=== PATIENT | female | born 1950 | race Caucasian/White ===

== ENCOUNTER 2016-07-19 08:35 | Outpatient (CLI) | payer MEDICARE, OTHER | END 2016-07-19 08:36 | disposition home or self-care (01) | DX: I10 Essential (primary) hypertension (principal); E78.5 Hyperlipidemia, unspecified; M25.50 Pain in unspecified joint ==

== ENCOUNTER 2016-08-17 08:00 | Outpatient (CLI) | payer MEDICARE, OTHER | END 2016-08-17 08:01 | disposition home or self-care (01) | LOC: LAB.R 08:00 | PROVIDERS: ATTEND Physician Assistant Medical | DX: R31.9 Hematuria, unspecified (principal) | CPT/HCPCS: 87077; 87086 ==

== ENCOUNTER 2016-09-15 08:00 | Outpatient (CLI) | payer MEDICARE, OTHER | END 2016-09-15 08:01 | disposition home or self-care (01) | LOC: LAB.R 08:00 | PROVIDERS: ATTEND Physician Assistant Medical | DX: R31.9 Hematuria, unspecified (principal) | CPT/HCPCS: 87086 ==

== ENCOUNTER 2016-12-13 10:59 | Outpatient (CLI) | payer MEDICARE, OTHER ==
[2016-12-13 19:24] LABS: ALBUMIN/GLOBULIN RATIO 1.3 (1.0-2.2); BILIRUBIN,TOTAL 0.5 mg/dL (0.2-1.0); BUN - BLOOD UREA NITROGEN 15 mg/dL (6-20); CALCIUM 9.6 mg/dL (8.5-10.3); CARBON DIOXIDE - CO2 29 mmol/L (21-32); CHLORIDE 103 mmol/L (101-111); CHOL/HDL RATIO 3.1 (<4.4); CHOLESTEROL 207 mg/dL; GFR - MDRD 55 (>89); GLUCOSE 94 mg/dL (70-100); HDL CHOLESTEROL 66 mg/dL; LDL/HDL RATIO 1.8 (<4.4); POTASSIUM 4.8 mmol/L (3.5-5.0); SODIUM 137 mmol/L (135-145); TOTAL PROTEIN 7.5 g/dL (6.7-8.2); TRIGLYCERIDES 93 mg/dL; VLDL CHOLESTEROL 19 mg/dL
== END 2016-12-13 11:00 | disposition home or self-care (01) ==
LOC: LAB.WCP 10:59
PROVIDERS: ATTEND Physician Assistant Medical
DX: E78.5 Hyperlipidemia, unspecified (principal)
CPT/HCPCS: 36415; 80053; 80061

== ENCOUNTER 2016-12-17 13:27 | Outpatient (CLI) | payer MEDICARE, OTHER ==
--- NOTE | 2016-12-17 16:02 | XRAY Report ---
THREE VIEW THORACIC SPINE: 12/17/2016 CLINICAL INDICATION: Back pain. FINDINGS: AP, lateral, and swimmers views of the thoracic spine demonstrate mild degenerative disk d isease, with minimal dextroscoliosis. There is no evidence of fracture. No paraspinal hematoma is see n. IMPRESSION: MILD DEGENERATIVE CHANGES. JOB #: [id number] EXT JOB #:[id number]
--- NOTE | 2016-12-17 16:12 | XRAY Report ---
COMPLETE CERVICAL SPINE: 12/17/2016 CLINICAL INDICATION: Neck pain. COMPARISON: CT 05/02/2015. FINDINGS: AP, lateral, odontoid, oblique views of the cervical spine demonstrate stable degenerative changes. There is no evidence of interval fracture. The prevertebral soft tissues are unremarkable . IMPRESSION: STABLE DEGENERATIVE CHANGES. NO EVIDENCE OF INTERVAL FRACTURE. JOB #: [id number] EXT JOB #:[id number]
--- NOTE | 2016-12-17 16:14 | XRAY Report ---
COMPLETE LUMBAR SPINE: 12/17/2016 CLINICAL INDICATION: Lumbar radiculopathy. FINDINGS: AP, lateral, oblique, cone-down views of the lumbar spine demonstrate degenerative changes , worst at L4-5. There is no evidence of fracture or subluxation. The bowel gas pattern appears unr emarkable. IMPRESSION: DEGENERATIVE CHANGES. NO EVIDENCE OF FRACTURE. :9 JOB #: [id number] EXT JOB #:[id number]
== END 2016-12-17 13:28 | disposition home or self-care (01) ==
LOC: DI 13:27
PROVIDERS: ATTEND Physician Assistant Medical
DX: M47.892 Other spondylosis, cervical region (principal); M51.34 Other intervertebral disc degeneration, thoracic region; M47.896 Other spondylosis, lumbar region
CPT/HCPCS: 72050; 72072; 72110

== ENCOUNTER 2018-09-13 08:00 | Outpatient (CLI) | payer MEDICARE, OTHER ==
[2018-09-13 12:02] LABS: BILIRUBIN,URINE NEGATIVE (NEGATIVE); GLUCOSE, URINE (UA) NEGATIVE (NEGATIVE); KETONES,URINE (UA) TRACE mg/dL (NEGATIVE); LEUKOCYTE ESTERASE, URINE TRACE (NEGATIVE); NITRITE,URINE NEGATIVE (NEGATIVE); OCCULT BLOOD,URINE TRACE-LYSE (NEGATIVE); PROTEIN,URINE NEGATIVE (NEGATIVE); UROBILINOGEN,URINE 0.2 (NORMAL) E.U./dL (NORMAL)
[2018-09-13 12:04] LABS: CLARITY,URINE CLOUDY (CLEAR)
[2018-09-13 12:10] LABS: RBC,URINE 0-5 /HPF (0-5)
[2018-09-13 12:11] LABS: BACTERIA,URINE Many /HPF (None Seen); CRYSTALS,URINE 3-5 Calcium Oxalate /LPF; SQUAMOUS EPITHELIAL CELL,UR RARE Squamous (<= Few)
== END 2018-09-13 23:59 | disposition home or self-care (01) ==
LOC: LAB.WCP 08:00
PROVIDERS: ATTEND Family Medicine
DX: R31.9 Hematuria, unspecified (principal)
CPT/HCPCS: 81001; 81003; 87086

== ENCOUNTER 2018-09-14 13:09 | Outpatient (CLI) | payer MEDICARE, OTHER ==
--- NOTE | 2018-09-18 08:22 | DEXA Report ---
Reason: POSTMENOPAUSAL STATUS Procedure Date: 09/14/2018 Accession Number: [id number] / [id number] Procedure: DEX - Dexa Spine and/or Hip CPT Code: FULL RESULT: EXAM: Dexa Spine and/or Hip DATE: 09/14/2018 1:38 PM CLINICAL HISTORY: POSTMENOPAUSAL STATUS TECHNIQUE: Dual energy x-ray absorptiometry (DXA) was performed on a [employer]. Regions measured are the AP Spine, femoral neck, and if needed forearm. COMPARISON: None. In accordance with the International Society for Clinical Densitometry (ISCD) guidelines, data from previous exams may be reanalyzed using current recommendations and techniques. This is done to allow a more accurate basis for comparison with the current study. FINDINGS: The data for the lumbar spine is as follows: BMD (g/cm/cm) T-SCORE Z-SCORE REGION L1 0.718 -3.4 -1.9 L2 0.759 -3.7 -2.2 L3 0.929 -2.3 -0.8 L4 1.032 -1.4 0.1 TOTAL 0.869 -2.6 -1.1 NOTE: All evaluable vertebrae are used for classification The data for the hip is as follows: BMD (g/cm/cm) T-SCORE Z-SCORE REGION Neck 0.750 -2.1 -0.5 TOTAL 0.840 -1.3 0.0 NOTE: The femoral neck or total proximal femur, whichever is lowest, is used for classification. IMPRESSION: THE WHO CLASSIFICATION BASED ON THE INTERNATIONAL REFERENCE STANDARD IS OSTEOPOROSIS. THE FRACTURE RISK IS HIGH. RECOMMENDATION: Patients with diagnosis of osteoporosis or osteopenia should have regular bone mineral density assessment. For those eligible for Medicare, routine testing is allowed once every 2 years. Testing frequency can be increased for patients who have rapidly progressing disease or for those who are receiving medical therapy to restore bone mass. COMMENT: World Health Organization (WHO) definitions for osteoporosis and osteopenia: NORMAL BMD: T-score at -1.0 or higher, fracture risk is low OSTEOPENIA BMD: T-score between -1.0 and -2.5, fracture risk is increased. OSTEOPOROSIS BMD: T-score at -2.5 or lower, fracture risk is high. National Osteoporosis Foundation recommends: 1. Obtain adequate dietary calcium (at least 1200 mg per day) and vitamin D (400-800 international units per day). 2. Participate, as appropriate, in regular weightbearing and muscle-strengthening exercise. 3. Avoid tobacco use and reduce alcohol and caffeine intake. 4. For more detailed information see the website at www.NOF.org.
== END 2018-09-14 13:10 | disposition home or self-care (01) ==
LOC: DI 13:09
PROVIDERS: ATTEND Family Medicine
DX: M81.0 Age-related osteoporosis without current pathological fracture (principal); Z78.0 Asymptomatic menopausal state
CPT/HCPCS: 77080

== ENCOUNTER 2018-10-31 10:01 | Outpatient (CLI) | payer MEDICARE, OTHER ==
[2018-10-31 10:17] LABS: BASOPHILS # (AUTO) 0.1 10^3/uL (0.0-0.1); BASOPHILS % (AUTO) 0.9 %; EOSINOPHILS # (AUTO) 0.6 10^3/uL (0.0-0.7); EOSINOPHILS % (AUTO) 8.2 %; HGB - HEMOGLOBIN 13.2 g/dL (12.0-16.0); LYMPHOCYTES # (AUTO) 2.3 10^3/uL (1.5-3.5); LYMPHOCYTES % (AUTO) 30.2 %; MEAN CORPUSCULAR HEMOGLOBIN 31.7 pg (27.0-31.0); MEAN CORPUSCULAR HGB CONC 32.7 g/dL (32.0-36.0); MEAN CORPUSCULAR VOLUME 96.9 fL (81.0-99.0); MEAN PLATELET VOLUME 9.9 fL (7.9-10.8); MONOCYTES # (AUTO) 0.6 10^3/uL (0.0-1.0); MONOCYTES % (AUTO) 7.7 %; NEUTROPHILS # (AUTO) 4.1 10^3/uL (1.5-6.6); NEUTROPHILS % (AUTO) 52.7 %; PLT - PLATELET COUNT 176 10^3/uL (130-450); RED BLOOD COUNT 4.17 10^6/uL (4.20-5.40); RED CELL DISTRIBUTION WIDTH 12.4 % (12.0-15.0); WHITE BLOOD COUNT 7.7 x10^3/uL (4.8-10.8)
== END 2018-10-31 10:02 | disposition home or self-care (01) ==
LOC: LAB 10:01
PROVIDERS: ATTEND Internal Medicine Gastroenterology
DX: I10 Essential (primary) hypertension (principal)
CPT/HCPCS: 36415; 85025; 93005

== ENCOUNTER 2018-11-07 09:22 | Day surgery (SDC) | payer MEDICARE, OTHER ==
[2018-11-07] MEDS ORDERED: LACTATED RINGERS 1,000 ML IV ONE (10:02)
[2018-11-07] MEDS ORDERED: fentaNYL 250 MCG/5 ML VIAL IVP ONE (10:53)
[2018-11-07] MEDS ORDERED: MIDAZOLAM 2 MG/2 ML VIAL IVP ONE (10:53)
[2018-11-07 11:42] VITALS: BP 123/71
== END 2018-11-07 09:23 | disposition home or self-care (01) ==
LOC: SDS 09:22
PROVIDERS: ATTEND Internal Medicine Gastroenterology
PROC: 0DBN8ZZ Excision of Sigmoid Colon, Via Natural or Artificial Opening Endoscopic (ICD-10-PCS; 2018-11-07)
PROC: 0DBH8ZZ Excision of Cecum, Via Natural or Artificial Opening Endoscopic (ICD-10-PCS; principal; 2018-11-07 10:45)
DX: Z12.11 Encounter for screening for malignant neoplasm of colon (principal); D12.5 Benign neoplasm of sigmoid colon; D12.0 Benign neoplasm of cecum; K57.30 Diverticulosis of large intestine without perforation or abscess without bleeding; I10 Essential (primary) hypertension
CPT/HCPCS: 45380; J3010; J7120

== ENCOUNTER 2019-11-16 14:22 | Outpatient (CLI) | payer MEDICARE, OTHER | END 2019-11-16 14:23 | disposition home or self-care (01) | LOC: COV 14:22 | PROVIDERS: ATTEND Family Medicine | DX: Z20.828 Contact with and (suspected) exposure to other viral communicable diseases (principal) ==

== ENCOUNTER 2020-09-04 07:22 | Day surgery (SDC) | payer MEDICARE, OTHER ==
[~2020-09-04 07:22] MED LIST: KETOROLAC 0.45% OPHTH DROPS ONE; PROPARACAINE 0.5% OPHTH DROPS 15 ML ONE
[2020-09-04] MEDS: PHENYLEPHRINE 2.5% OPHTH 2 ML DROPS ONE ×3 (07:35→07:45)
[2020-09-04] MEDS: CYCLOPENTOLATE 1% OPHTH DROPS 2 ML ONE ×3 (07:35→07:45)
[2020-09-04] MEDS ORDERED: LACTATED RINGERS 1,000 ML IV ONE (07:44)
--- NOTE | 2020-09-04 08:04 | ANESTHESIA ---
Pre-Anesthesia VS, & Labs - Diagnosis right eye senile combined cataract - Procedure cataract extraction with IOL implant right eye Vital Signs: Temp Pulse Resp BP Pulse Ox 36.4 C L 76 20 152/84 H 98 09/04/20 07:31 09/04/20 07:31 09/04/20 07:31 09/04/20 07:31 09/04/20 07:31 Height: 5 ft 7 in Weight (kg): 68 kg Body Mass Index: 23.4 BMI Classification: Healthy weight - NPO >8 hours - Is Patient ?: No Home Medications and Allergies Home Medications: Ambulatory Orders Gabapentin [Neurontin] 300 mg PO DAILY 09/03/20 [place]-3/Dha/Epa/Fish Oil [Fish Oil 1,000 mg Softgel] 1 tab PO DAILY 09/03/20 atenoloL [Atenolol] 25 mg PO DAILY 05/02/15 Carbidopa/Levodopa 25/100 [Sinemet 25 mg/100 mg] 1 tab PO TID 11/03/18 Red Yeast Rice 1 tab PO BID 11/03/18 Gabapentin [Neurontin] 300 mg PO DAILY 09/03/20 [place]-3/Dha/Epa/Fish Oil [Fish Oil 1,000 mg Softgel] 1 tab PO DAILY 09/03/20 Allergies/Adverse Reactions: Allergies Allergy/AdvReac Type Severity Reaction Status Date / Time No Known Drug Allergies Allergy Verified 09/04/20 07:42 Anes History & Medical History - Anesthetic History Anesthesia Complications: reports: No previous complications - Medical History Cardiovascular: reports: Hypertension, High cholesterol Pulmonary: reports: None Gastrointestinal: reports: None, Colon polyps Urinary: reports: None Neuro: reports: Parkinson's Musculoskeletal: reports: Osteoporosis Endocrine/Autoimmune: reports: None Skin: reports: None Smoking Status: Never smoker Psychosocial: reports: No issues indicated - Surgical History General: reports: Hiatal hernia repair, Colonoscopy Exam General: Alert, Oriented x3, Cooperative, No acute distress Dental: WNL Mouth Openin Fingerbreadth Neck Mobility: Normal Mallampati classification: II Thyromental Distance: 4-6 cm Mental/Cognitive Status: Alert/Oriented X3, Normal for patient Plan Anesthesia Type: MAC Consent for Procedure(s) Verified and Reviewed: Yes Code Status: Attempt Resuscitation ASA classification: 2-Mild systemic disease Is this case an emergency?: No
[2020-09-04] MEDS ORDERED: EPINEPHrine 1 MG/ML AMP ONE (08:13)
[2020-09-04] MEDS ORDERED: TRIAMCIN/MOXIFLOX OPHTHALMIC 0.6 ML VIAL IO ONE ×2 (08:13→08:42)
[2020-09-04] MEDS ORDERED: TIMOLOL 0.5% OPHTH DROPS ONE (08:14)
[2020-09-04] MEDS ORDERED: BSS/LIDOCAINE/EPINEPHRINE 1 ML SYRINGE ONE (08:14)
[2020-09-04] MEDS ORDERED: BRIMONIDINE 0.2% OPHTH DROPS 5 ML ONE (08:14)
[2020-09-04] MEDS ORDERED: VANCOMYCIN OPHTHALMI 8MG/0.8ML 8 MG/0.8 ML SYRINGE IO ONE ×2 (08:14→08:42)
[2020-09-04] MEDS ORDERED: MIDAZOLAM 2 MG/2 ML VIAL ONE (08:20)
[2020-09-04] MEDS ORDERED: BRIMONIDINE 0.2% OPHTH DROPS 5 ML OPTH ONE (08:41)
[2020-09-04] MEDS ORDERED: EPINEPHrine 1 MG/ML AMP IR ONE (08:41)
[2020-09-04] MEDS ORDERED: TIMOLOL 0.5% OPHTH DROPS OPTH ONE (08:41)
[2020-09-04] MEDS ORDERED: CHONDR SULF/HYALURONATE SYRINGE IO ONE (08:41)
[2020-09-04] MEDS ORDERED: PROPARACAINE 0.5% OPHTH DROPS 15 ML EACHEYE ONE (08:42)
[2020-09-04] MEDS ORDERED: BSS/LIDOCAINE/EPINEPHRINE 1 ML SYRINGE IO ONE (08:42)
[2020-09-04] MEDS ORDERED: LACTATED RINGERS 800 ML IV ONE (08:53)
--- NOTE | 2020-09-04 08:57 | OPERATIVE REPORT ---
Operative Report - Other Other Information/Narrative: Date of Surgery: 09/04/20 Preop Dx: Visually significant cataract right eye. This was the first cataract surgery. Postop Dx: Same Procedure: Phacoemulsification with posterior chamber intraocular lens implant right eye Surgeon: Dr. Toney Posadas Anesthesia: Monitored anesthesia care Complications: None Operative Indications: This is a 70-year-old F with progressive vision loss in the right eye due to 3+ nuclear sclerotic and 3+ posterior subcapsular cataract. Best corrected visual acuity was 20/40 with glare to count-fingers vision in the right eye. Indications for surgery were: - Overall decrease in vision - Difficulty driving in low light or at night - Difficulty driving at night because of headlights from other vehicles The patient was consented at length concerning the risks and benefits of cataract surgery after which the patient expressed a desire to proceed with surgery. Operative Procedure: The patient was taken into OR#3 and placed under monitored anesthesia care. A surgical time-out was conducted confirming correct patient, correct procedure, and correct surgical site. The patient was given topical anesthesia and then prepped and draped in the usual sterile fashion. The eye was entered at the 6 and 3 oclock positions. Intracameral Shugarcaine was injected into the anterior chamber followed by a dispersive viscoelastic. A co ntinuous-tear curvilinear capsulorhexis was performed. The nucleus was hydrodissected and phacoemulsified. The cortex was evacuated using automated infusion and aspiration. A cohesive viscoelastic was injected into the capsular bag and a 12.5 diopter intraocular lens was inserted into the bag. Infusion and aspiration were used to evacuate the viscoelastic materials from the eye. The wounds were hydrated and the eye inflated to physiologic pressure using balanced salt solution. Approximately 0.25ml of a mixture of triamcinolone and moxifloxacin was injected trans-sclerally into the vitreous in the inferotemporal quadrant using a 30 gauge cannula. An additional 0.55ml of a mixture of triamcinolone, moxifloxacin, and vancomycin was injected subconjunctivally in the superior quadrant for infection and inflammation prophylaxis. Wound integrity was checked with Weck-Elo sponges. The patient was taken from the operating room in good condition and given post-op instructions.
[2020-09-04 09:11] VITALS: BP 139/67
--- NOTE | 2020-09-04 09:51 | ANESTHESIA POST OP EVALUATION ---
Anesthesia Post Eval - Post Anesthesia Eval Vitals: Last Vital Signs Temp 36.4 C L 09/04/20 09:10 Pulse 70 09/04/20 09:10 Resp 16 09/04/20 09:10 BP 139/67 H 09/04/20 09:10 Pulse Ox 100 09/04/20 09:10 CV Function Including HR & BP: Stable Pain Control: Satisfactory Nausea & Vomiting: Negative Mental Status: Baseline Respiratory Status: Airway Patent Hydration Status: Satisfactory Anesthesia Complications: None
== END 2020-09-04 07:23 | disposition home or self-care (01) ==
LOC: SDS 07:22
PROVIDERS: ATTEND Ophthalmology
DX: H25.811 Combined forms of age-related cataract, right eye (principal); I10 Essential (primary) hypertension
CPT/HCPCS: 66984; A9270; J3490; J7120

== ENCOUNTER 2020-10-02 07:44 | Day surgery (SDC) | payer MEDICARE, OTHER ==
[~2020-10-02 07:44] MED LIST changes: +CYCLOPENTOLATE 1% OPHTH DROPS 2 ML ONE; +PILOCARPINE 1% OPHTH DROPS ONE
[2020-10-02] MEDS ORDERED: LACTATED RINGERS 1,000 ML IV ONE ×2 (07:51→09:09)
[2020-10-02] MEDS ORDERED: PHENYLEPHRINE 2.5% OPHTH 2 ML DROPS LEFTEYE ONE (07:52)
--- NOTE | 2020-10-02 08:01 | ANESTHESIA ---
Pre-Anesthesia VS, & Labs - Diagnosis left eye cataract - Procedure left CATIOL Vital Signs: Temp Pulse Resp BP Pulse Ox 36 C L 71 16 149/83 H 96 10/02/20 07:55 10/02/20 07:55 10/02/20 07:55 10/02/20 07:55 10/02/20 07:55 Height: 5 ft 7 in Weight (kg): 67.2 kg Body Mass Index: 23.2 BMI Classification: Healthy weight - NPO >8 hours - Is Patient ?: No - Lab Results Lab results reviewed: Yes Home Medications and Allergies atenoloL [Atenolol] 25 mg PO DAILY 05/02/15 Carbidopa/Levodopa 25/100 [Sinemet 25 mg/100 mg] 1 tab PO TID 11/03/18 Red Yeast Rice 1 tab PO BID 11/03/18 Gabapentin [Neurontin] 300 mg PO DAILY 09/03/20 [place]-3/Dha/Epa/Fish Oil [Fish Oil 1,000 mg Softgel] 1 tab PO DAILY 09/03/20 Allergies/Adverse Reactions: Allergies Allergy/AdvReac Type Severity Reaction Status Date / Time No Known Drug Allergies Allergy Verified 09/04/20 07:42 Anes History & Medical History - Anesthetic History Anesthesia Complications: reports: No previous complications Family history of Anesthesia Complications: Denies Family history of Malignant Hyperthermia: Denies - Medical History Cardiovascular: reports: Hypertension, High cholesterol Pulmonary: reports: None Gastrointestinal: reports: None, Colon polyps Urinary: reports: None Neuro: reports: Parkinson's Musculoskeletal: reports: Osteoporosis Endocrine/Autoimmune: reports: None Skin: reports: None Smoking Status: Never smoker - Surgical History General: reports: Hiatal hernia repair, Colonoscopy Eyes Ears Nose Throat (EENT): reports: Cataracts Exam General: Alert, Oriented x3, Cooperative, No acute distress Dental: WNL Mouth Openin Fingerbreadth Neck Mobility: Normal Mallampati classification: II Respiratory: Lungs clear, Normal breath sounds, No respiratory distress, No accessory muscle use Cardiovascular: Regular rate, Normal S1, Normal S2, No murmurs Plan Anesthesia Type: MAC Consent for Procedure(s) Verified and Reviewed: Yes Code Status: Attempt Resuscitation ASA classification: 2-Mild systemic disease Is this case an emergency?: No
[2020-10-02] MEDS ORDERED: MIDAZOLAM 2 MG/2 ML VIAL ONE (08:45)
[2020-10-02] MEDS ORDERED: BRIMONIDINE 0.2% OPHTH DROPS 5 ML OPTH ONE (09:02)
[2020-10-02] MEDS ORDERED: EPINEPHrine 1 MG/ML AMP IR ONE (09:02)
[2020-10-02] MEDS ORDERED: CHONDR SULF/HYALURONATE SYRINGE IO ONE (09:02)
[2020-10-02] MEDS ORDERED: BSS/LIDOCAINE/EPINEPHRINE 1 ML SYRINGE IO ONE (09:03)
[2020-10-02] MEDS ORDERED: TIMOLOL 0.5% OPHTH DROPS OPTH ONE (09:03)
[2020-10-02] MEDS ORDERED: TRIAMCIN/MOXIFLOX OPHTHALMIC 0.6 ML VIAL IO ONE ×2 (09:03→10:39)
[2020-10-02] MEDS ORDERED: VANCOMYCIN OPHTHALMI 8MG/0.8ML 8 MG/0.8 ML SYRINGE IO ONE ×2 (09:04→10:40)
[2020-10-02] MEDS ORDERED: PROPARACAINE 0.5% OPHTH DROPS 15 ML EACHEYE ONE (09:04)
[2020-10-02 09:22] VITALS: BP 137/75
--- NOTE | 2020-10-02 09:30 | ANESTHESIA POST OP EVALUATION ---
Anesthesia Post Eval - Post Anesthesia Eval Vitals: Last Vital Signs Temp 36.6 C 10/02/20 09:21 Pulse 64 10/02/20 09:21 Resp 16 10/02/20 09:21 BP 137/75 H 10/02/20 09:21 Pulse Ox 95 10/02/20 09:21 CV Function Including HR & BP: Stable Pain Control: Satisfactory Nausea & Vomiting: Negative Mental Status: Baseline Respiratory Status: Airway Patent Hydration Status: Satisfactory Anesthesia Complications: None
--- NOTE | 2020-10-02 09:41 | OPERATIVE REPORT ---
Operative Report - Other Other Information/Narrative: Date of Surgery: 10/02/20 Preop Dx: Visually significant cataract left eye. Cataract surgery was performed in the right eye on 09/04/2020. Postop Dx: Same Procedure: Phacoemulsification with posterior chamber intraocular lens implant left eye Surgeon: Dr. Toney Posadas Anesthesia: Monitored anesthesia care Complications: None Operative Indications: This is a 70-year-old F with progressive vision loss in the left eye due to 2+ nuclear sclerotic, and 1+ posterior subcapsular cataract. Best corrected visual acuity was 20/20 with glare to 20/80 vision in the left eye. Indications for surgery were: - Overall decrease in vision - Difficulty seeing words on a computer screen - Difficulty reading - Difficulty driving in low light or at night - Difficulty driving at night because of headlights from other vehicles The patient was consented at length concerning the risks and benefits of cataract surgery after which the patient expressed a desire to proceed with surgery. Operative Procedure: The patient was taken into OR#3 and placed under monitored anesthesia care. A surgical time-out was conducted confirming correct patient, correct procedure, and correct surgical site. The patient was given topical anesthesia and then prepped and draped in the usual sterile fashion. The eye was entered at the 6 and 3 oclock positions. Intracameral Shugarcaine was injected into the anterior chamber followed by a dispersive viscoelastic. A continuous-tear curvilinear capsulorhexis was performed. The nucleus was hydrodissected and phacoemulsified. The cortex was evacuated using automated infusion and aspiration. A cohesive viscoelastic was injected into the capsular bag and a 12.5 diopter intraocular lens was inserted into the bag. Infusion and aspiration were used to evacuate the viscoelastic materials from the eye. The wounds were hydrated and the eye inflated to physiologic pressure using balanced salt solution. Approximately 0.25ml of a mixture of triamcinolone and moxifloxacin was injected trans-sclerally into the vitreous in the inferotemporal quadrant using a 30 gauge cannula. An additional 0.55ml of a mixture of triamcinolone, moxifloxacin, and vancomycin was injected subconjunctivally in the superior quadrant for infection and inflammation prophylaxis. Wound integrity was checked with Weck-Elo sponges. The patient was taken from the operating room in good condition and given post-op instructions.
[2020-10-02] MEDS ORDERED: BRIMONIDINE 0.2% OPHTH DROPS 5 ML ONE (10:39)
[2020-10-02] MEDS ORDERED: TIMOLOL 0.5% OPHTH DROPS ONE (10:39)
[2020-10-02] MEDS ORDERED: BSS/LIDOCAINE/EPINEPHRINE 1 ML SYRINGE ONE (10:39)
[2020-10-02] MEDS ORDERED: EPINEPHrine 1 MG/ML AMP ONE (10:39)
== END 2020-10-02 07:45 | disposition home or self-care (01) ==
LOC: SDS 07:44
PROVIDERS: ATTEND Ophthalmology
DX: H25.812 Combined forms of age-related cataract, left eye (principal); I10 Essential (primary) hypertension; E78.00 Pure hypercholesterolemia, unspecified; G20 Parkinson's disease; M81.0 Age-related osteoporosis without current pathological fracture; Z96.1 Presence of intraocular lens
CPT/HCPCS: 66984; A9270; J3490; J7120

== ENCOUNTER 2021-07-29 09:41 | Outpatient (CLI) | payer MEDICARE, OTHER ==
--- NOTE | 2021-07-29 11:19 | DEXA Report ---
PROCEDURE: Dexa Spine and/or Hip INDICATIONS: OSTEOPOROSIS TECHNIQUE: Dual energy x-ray absorptiometry (DXA) was performed on a [employer]. Regions measur ed are the AP Spine, femoral neck, and if needed forearm. COMPARISON: 09/14/2018. FINDINGS: Lumbar Spine: Bone Mineral Density 0.975 g/cm/cm,T score -1.7, osteopenia Left Hip: Bone Mineral Density 0.836 g/cm/cm,T score -1.4, osteopenia Left Femoral Neck: Bone Mineral Density 0.765 g/cm/cm, T score -2.0, osteopenia (T score greater or equal to -1.0: NORMAL) (T score from -1.1 to -2.4: OSTEOPENIA) (T score less than or equal to -2.5 to: OSTEOPOROSIS) Impression: Osteopenia. Bone mineral density has decreased 0.5% interval since prior exam obtained 09/14/2018. Patients with diagnosis of osteoporosis or osteopenia should have regular bone mineral density assess ment. For those eligible for Medicare, routine testing is allowed once every 2 years. Testing frequ ency can be increased for patients who have rapidly progressing disease or for those who are receivin g medical therapy to restore bone mass. Reviewed by: Isamar Frederick MD, PhD on 07/29/2021 11:18 AM PDT Approved by: Isamar Frederick MD, PhD on 07/29/2021 11:18 AM PDT Station ID: [id number]
== END 2021-07-29 09:42 | disposition home or self-care (01) ==
LOC: DI 09:41
PROVIDERS: ATTEND Nurse Practitioner Family
DX: M85.89 Other specified disorders of bone density and structure, multiple sites (principal)

== ENCOUNTER 2021-11-23 09:21 | Outpatient (CLI) | payer MEDICARE, OTHER | END 2021-11-23 09:22 | disposition critical access hospital (66) | LOC: EMS 09:21 | DX: R00.2 Palpitations (principal); I48.91 Unspecified atrial fibrillation | CPT/HCPCS: A0425; A0427 ==

== ENCOUNTER 2021-11-23 09:45 | Inpatient (IN) | payer MEDICARE, OTHER ==
[2021-11-23] MEDS ORDERED: SODIUM CHLORIDE 0.9% 1,000 ML IV STA (09:51)
[2021-11-23] MEDS: diltiaZEM INJ 5 MG/ML VIAL IVP PRN ×3 (10:00→10:53)
[2021-11-23 10:01] LABS: BASOPHILS % (AUTO) 0.4 %; EOSINOPHILS # (AUTO) 0.4 10^3/uL (0.0-0.7); EOSINOPHILS % (AUTO) 5.8 %; HCT - HEMATOCRIT 37.4 % (37.0-47.0); HGB - HEMOGLOBIN 12.2 g/dL (12.0-16.0); LYMPHOCYTES # (AUTO) 1.2 10^3/uL (1.5-3.5); LYMPHOCYTES % (AUTO) 16.5 %; MEAN CORPUSCULAR HEMOGLOBIN 32.4 pg (27.0-31.0); MEAN CORPUSCULAR HGB CONC 32.6 g/dL (32.0-36.0); MEAN CORPUSCULAR VOLUME 99.2 fL (81.0-99.0); MEAN PLATELET VOLUME 10.3 fL (7.9-10.8); MONOCYTES # (AUTO) 0.5 10^3/uL (0.0-1.0); MONOCYTES % (AUTO) 7.6 %; NEUTROPHILS # (AUTO) 4.9 10^3/uL (1.5-6.6); NEUTROPHILS % (AUTO) 69.4 %; PLT - PLATELET COUNT 169 10^3/uL (130-450); RED BLOOD COUNT 3.77 10^6/uL (4.20-5.40); RED CELL DISTRIBUTION WIDTH 13.9 % (12.0-15.0); WHITE BLOOD COUNT 7.1 x10^3/uL (4.8-10.8)
--- NOTE | 2021-11-23 10:28 | XRAY Report ---
PROCEDURE: Chest 1 View X-Ray INDICATIONS: chest pain TECHNIQUE: One view of the chest was acquired. COMPARISON: None FINDINGS: Surgical changes and devices: Overlying monitoring wires. Lungs and pleura: Diffuse interstitial prominence, most dense in the perihilar regions bilaterally. Patchy alveolar opacity in the right upper and left midlung. Blunting of both costophrenic sulci. No pneumothorax. Mediastinum: Normal size heart. Indistinct central vessels. Normal aortic contour. Bones and chest wall: No suspicious bony lesions. Overlying soft tissues appear unremarkable. IMPRESSION: 1. Diffuse interstitial thickening with patchy perihilar alveolar opacities. Differential diagnosis i ncludes interstitial and pulmonary edema or pneumonia. Correlate clinically. 2. Normal size heart with indistinct central vessels. 3. Possible small bilateral pleural effusions. Reviewed by: Bindu Oro MD on 11/23/2021 10:26 AM PDT Approved by: Bindu Oro MD on 11/23/2021 10:26 AM PDT Station ID: [id number]
[2021-11-23 10:33] LABS: ALBUMIN 3.3 g/dL (3.2-5.5); ALBUMIN/GLOBULIN RATIO 1.1 (1.0-2.2); ALKALINE PHOSPHATASE 126 IU/L (42-121); ALT ALANINE AMINOTRANSFERASE < 10 IU/L (10-60); AST ASPARTATE AMINOTRANSFERASE 32 IU/L (10-42); BILIRUBIN,TOTAL 0.7 mg/dL (0.2-1.0); BUN - BLOOD UREA NITROGEN 31 mg/dL (6-20); CARBON DIOXIDE - CO2 29 mmol/L (21-32); CHLORIDE 103 mmol/L (101-111); CREATININE 1.2 mg/dL (0.4-1.0); GFR - MDRD 44 (>89); GLUCOSE 165 mg/dL (70-100); LIPASE 27 U/L (22-51); MAGNESIUM 1.9 mg/dL (1.7-2.8); POTASSIUM 4.3 mmol/L (3.5-5.0); SODIUM 141 mmol/L (135-145); TOTAL PROTEIN 6.4 g/dL (6.7-8.2)
[2021-11-23 10:39] LABS: PT - PROTHROMBIN TIME 11.7 secs (9.9-12.6)
[2021-11-23] MEDS ORDERED: diltiaZEM INJ 125 MG in DEXTROSE 5% 100 ML IV STA ×2 (11:59→14:41)
[2021-11-23] MEDS ORDERED: METOPROLOL TARTRATE 50 MG TABLET PO STA (12:21)
[2021-11-23] MEDS ORDERED: diltiaZEM 30 MG TABLET PO STA (12:21)
--- NOTE | 2021-11-23 15:01 | ED Physician Documentation ---
History of Present Illness - Stated complaint Stated Complaint: RVR AFIB - Chief complaint Chief Complaint: Cardiac - Additonal information Additional information: Patient 71-year-old female presenting to the emergency department with atrial fibrillation with rapid ventricular response. Reports she felt symptoms began 4 days ago. Today contacted her primary care doctor's office and was instructed to come to the emergency department. Endorses for history of hypertension, dyslipidemia and osteoporosis. Denies any history of coronary artery disease. Denies any chest pain or shortness of breath associated with her symptoms. Review of Systems Ten Systems: 10 systems reviewed and negative Constitutional: denies: Fever Eyes: denies: Loss of vision Ears: denies: Loss of hearing Nose: denies: Rhinorrhea / runny nose Throat: denies: Dental pain / toothache Cardiac: reports: Palpitations. denies: Chest pain / pressure Respiratory: denies: Dyspnea GI: denies: Abdominal Pain, Nausea, Vomiting : denies: Dysuria PD PAST MEDICAL HISTORY - Past Medical History Past Medical History: Yes Cardiovascular: Hypertension, High cholesterol Respiratory: None Neuro: Parkinson's Endocrine/Autoimmune: None GI: None, Colon polyps : None Psych: None Musculoskeletal: Osteoporosis Derm: None - Past Surgical History Past Surgical History: Yes General: Hiatal hernia repair, Colonoscopy HEENT: Cataracts - Present Medications Home Medications: Ambulatory Orders Medication Instructions Recorded Confirmed Carbidopa/Levodopa 25/100 [Sinemet 1 tab PO QID 11/03/18 11/23/21 25 mg/100 mg] [place]-3/Dha/Epa/Fish Oil [Fish Oil 1 cap PO DAILY 09/03/20 11/23/21 1,000 mg Softgel] Alendronate [Fosamax] 70 mg PO OAW 11/23/21 11/23/21 Apixaban [Eliquis] 5 mg PO BID #60 tablet 11/23/21 Atenolol [Tenormin] 50 mg PO DAILY 11/23/21 11/23/21 Calcium Carbonate [Calcium] 600 mg PO DAILY 11/23/21 11/23/21 Cholecalciferol (Vitamin D3) 50 mcg PO DAILY 11/23/21 11/23/21 [Vitamin D3] Rosuvastatin Calcium [Crestor] 10 mg PO QPM 11/23/21 11/23/21 - Allergies Allergies/Adverse Reactions: Allergies Allergy/AdvReac Type Severity Reaction Status Date / Time No Known Drug Allergies Allergy Verified 11/23/21 09:48 - Social History Does the pt smoke?: No Smoking Status: Never smoker Does the pt drink ETOH?: No Does the pt have substance abuse?: No - Immunizations Immunizations are current?: Yes PD ED PE NORMAL - General General: Alert and oriented X 3, No acute distress, Well developed/nourished - HEENT HEENT: Atraumatic, PERRL - Neck Neck: Supple, no meningeal sign, No bony TTP, No JVD - Cardiac Cardiac: Other (Tachycardic, irregularly irregular) - Respiratory Respiratory: No respiratory distress, Clear bilaterally - Abdomen Abdomen: Normal bowel sounds, Non tender - Female Female : Deferred - Rectal Rectal: Deferred - Back Back: No CVA TTP - Derm Derm: Normal color - Extremities Extremities: No deformity - Neuro Neuro: Alert and oriented X 3, entry level assistant manager 2-12 intact, No motor deficit, No sensory deficit Results - Vitals Vitals: Vital Signs - 24 hr 11/23/21 11/23/21 11/23/21 09:48 09:55 10:25 Temperature 36.8 C 36.8 C Heart Rate 120 H 120 H 89 Respiratory 20 18 22 Rate Blood Pressure 120/77 120/77 86/52 L O2 Saturation 100 100 94 11/23/21 11/23/21 11/23/21 10:40 11:00 11:30 Temperature Heart Rate 91 98 96 Respiratory 26 H 22 22 Rate Blood Pressure 115/88 H 114/86 H 108/82 H O2 Saturation 92 97 98 11/23/21 11/23/21 11/23/21 12:00 12:30 13:00 Temperature 36.8 C Heart Rate 112 H 126 H 126 H Respiratory 18 24 22 Rate Blood Pressure 127/86 H 135/82 H 140/90 H O2 Saturation 94 92 92 11/23/21 11/23/21 11/23/21 13:30 14:00 14:40 Temperature Heart Rate 120 H 108 H 121 H Respiratory 24 22 Rate Blood Pressure 120/90 H 133/86 H 128/86 H O2 Saturation 92 94 11/23/21 15:00 Temperature Heart Rate 115 H Respiratory 22 Rate Blood Pressure 128/100 H O2 Saturation 92 Oxygen O2 Source Room air - EKG (time done) 949 Rate: Rate (enter#) (120) Rhythm: Atrial fibrillation [place]: Normal Intervals: Prolonged QT QRS: Normal Ischemia: Non specific changes Computer interpretation: Agree with computer - Labs Labs: Laboratory Tests 11/23/21 11/23/21 11/23/21 09:50 09:50 09:50 WBC 7.1 RBC 3.77 L Hgb 12.2 Hct 37.4 MCV 99.2 H MCH 32.4 H MCHC 32.6 RDW 13.9 Plt Count 169 MPV 10.3 Neut # (Auto) 4.9 Lymph # (Auto) 1.2 L [place] # (Auto) 0.5 Eos # (Auto) 0.4 Baso # (Auto) 0.0 Absolute Nucleated RBC 0.00 Nucleated RBC % 0.0 PT INR Sodium 141 Potassium 4.3 Chloride 103 Carbon Dioxide 29 Anion Gap 9.0 BUN 31 H Creatinine 1.2 H Estimated GFR (MDRD) 44 L Glucose 165 H Calcium 9.0 Magnesium 1.9 Total Bilirubin 0.7 AST 32 ALT < 10 L Alkaline Phosphatase 126 H Total Protein 6.4 L Albumin 3.3 Globulin 3.1 Albumin/Globulin Ratio 1.1 Lipase 27 TSH 1.12 SARS-CoV-2 (PCR) 11/23/21 11/23/21 10:05 10:10 WBC RBC Hgb Hct MCV MCH MCHC RDW Plt Count MPV Neut # (Auto) Lymph # (Auto) [place] # (Auto) Eos # (Auto) Baso # (Auto) Absolute Nucleated RBC Nucleated RBC % PT 11.7 INR 1.0 Sodium Potassium Chloride Carbon Dioxide Anion Gap BUN Creatinine Estimated GFR (MDRD) Glucose Calcium Magnesium Total Bilirubin AST ALT Alkaline Phosphatase Total Protein Albumin Globulin Albumin/Globulin Ratio Lipase TSH SARS-CoV-2 (PCR) NOT DETECTED PD MEDICAL DECISION MAKING - ED course Complexity details: reviewed results, re-evaluated patient, d/w patient, d/w securities consultant ED course: Patient is 71-year-old female presenting with new onset A. fib with RVR. Tachycardic with irregularly irregular pulse on arrival to the emergency department. Patient denied chest pain or shortness of breath associated with his symptoms. EKG obtained demonstrated A. fib with RVR nonspecific ST abnormalities. Labs obtained generally within normal limits or nonactionable. Patient was given IV doses of Cardizem initially. Consulted with the hospitalist service and patient was subsequently given p.o. Cardizem and Lopressor. Monitored in the emergency department for several hours with persistent uncontrolled heart rate. Ultimately started on Cardizem drip. Case discussed with the hospitalist service who graciously agreed to hospitalize the patient for further evaluation and treatment. Departure - Departure Disposition: ED Place in Observation Clinical Impression: Atrial fibrillation with RVR Discharge Date/Time: 11/23/21 15:36
[2021-11-23] MEDS ORDERED: oxyCODONE 5 MG TABLET PO PRN (15:03)
[2021-11-23] MEDS ORDERED: ONDANSETRON ODT 4 MG TABLET TL PRN (15:03)
[2021-11-23] MEDS ORDERED: SODIUM CHLORIDE FLUSH 0.9% 10 ML SYRINGE IVP PRN (15:03)
[2021-11-23] MEDS ORDERED: ONDANSETRON 4 MG/2 ML VIAL IVP PRN (15:03)
[2021-11-23] MEDS ORDERED: DIGOXIN 500 MCG/2 ML AMP IVP STA (15:06)
--- NOTE | 2021-11-23 15:12 | HISTORY & PHYSICAL EXAMINATION ---
Chief Complaint - Chief Complaint Chief Complaint: palpitations History of Present Illness - Admitted From Admitted From:: home via EMS - [facility] History obtained from: Dr. Rodriguez Limitations: none - History of Present Illness HPI Comment/Other: 71-year-old female who has no history of cardiac disease. Her risk factors for cardiac disease include age, hyperlipidemia, and hypertension. She presents with 4 days of palpitations that were getting steadily worse. She waited over the weekend to call her primary care provider office and they sent her here to the emergency room. She was brought in by EMS. EMS gave her 16 mg of diltiazem when her heart rate is 162. They dropped it down to 150 by the time she got to the ER. They had also given her a 250 cc bolus. In the ER her blood pressure is well maintained. Creatinine is newly elevated at 1.2 with a baseline being 0.8. Magnesium, potassium was normal. EKG had no acute ST-T wave changes and because she been having symptoms of palpitations for 4 days without chest pain , nausea, jaw pain, or L arm pain, the ER provider felt that demand ischemia troponin did not really need to be verified. TSH was normal. In the ER she has received diltiazem drip after diltiazem IV push 3 doses. Metoprolol p.o. And diltiazem p.o. Her heart rate is now varying between 108-126. We are asked to place her in observation to control her heart rate. On review of systems she tells me that she has been slowing down this last year. She can really feel it. She usually goes to [facility] every year to see her family. Her long-term goal is to live in [facility] when she can no longer take care of her self. It would be so much cheaper and easier to do that there. But this year she has not gone because of worsening Parkinson's, worsening right buttock stiffness. She cannot put her finger on it but she is just really slowing down. Appetite is good. She is still eating. She does not describe her self is getting very hungry but she does eat regularly to maintain nutrition and strength. There is been no cough, wheezing, phlegm production. There is no sore throat, fever, eustachian tube dysfunction. She denies any abdominal pain unless it is tightness that radiates from the right buttock around to the right lower quadrant when she bends over. There is been no change in bowel habits. She has definitely been spending more more time sitting over the last few weeks due to Parkinson's and stiffness. She still drives a car, pays her own bills, does her own housekeeping, grocery shopping and cooking. History - Past Medical History Cardiovascular: reports: Hypertension, High cholesterol Respiratory: reports: None Neuro: reports: Parkinson's (1st noted 12/2010 w head and hand tremors. then RLE 2012, global bradykinesia by 2016. 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 CT IVP nml 2015. Saw [facility] 11/21) HEENT: reports: Other (cataracts with removal and lens implants) Psych: reports: None Musculoskeletal: reports: Osteoporosis, Chronic back pain (lumbar radiciulopathy, has had PT, chiropractor, yoga, massage), Other (pyriformis syndrome) Derm: reports: Other (seborrheic dermatitis) MRSA Hx?: No Other Past Medical History: Low vitamin D - Past Surgical History General: reports: Hiatal hernia repair, Colonoscopy (2004, 2007, 2013, 10/2018), Other (ventral hernia repair as a child) HEENT: reports: Cataracts - Family & Social History Family History Comment/Other: Father at age 58 of cancer. Mom at age 67 of heart attack. 2 sisters alive and healthy, 1 with hyperthryoid and s/p th yroidectomy. 0 children Living arrangement: At home Living Situation: With family Social History Notes: Never smoked, never had a problem with alcohol abuse. was in the [place] she met him on [facility] when she was visiting there from [place].. She was born in [place]. They and moved to [place]. But they used to have a small cabin on [address]. She is since 2011. Once he , she felt that she knew many people from [facility] because of fishing people at [facility]. So [place] came [place]. Lives in her own home, completely independent. - Substance History Use: Uses substance without health or social issues: NONE Abuse: Recurrent use of substance despite neg consequences: NONE - POLST Patient has POLST: No POLST Status: Full Code Meds/Allgy - Home Medications Home Medications: Ambulatory Orders Medication Instructions Recorded Confirmed Carbidopa/Levodopa 25/100 [Sinemet 1 tab PO TID 11/03/18 10/01/20 25 mg/100 mg] Altair-3/Dha/Epa/Fish Oil [Fish Oil 1 tab PO DAILY 09/03/20 10/01/20 1,000 mg Softgel] Alendronate [Fosamax] 70 mg PO OAW 11/23/21 11/23/21 Apixaban [Eliquis] 5 mg PO BID #60 tablet 11/23/21 Atenolol [Tenormin] 50 mg PO DAILY 11/23/21 11/23/21 Calcium Carbonate [Calcium] 600 mg PO DAILY 11/23/21 11/23/21 Cholecalciferol (Vitamin D3) 50 mcg PO DAILY 11/23/21 11/23/21 [Vitamin D3] Rosuvastatin Calcium [Crestor] 10 mg PO QPM 11/23/21 11/23/21 - Allergies Allergies/Adverse Reactions: Allergies Allergy/AdvReac Type Severity Reaction Status Date / Time No Known Drug Allergies Allergy Verified 11/23/21 09:48 Review of Systems - Constitutional Constitutional: reports: Fatigue. denies: Fever, Chills, Malaise, Weakness, Poor appetite, Night sweats, Weight gain, Weight loss - Eyes Eyes: denies: Pain, Irritation, Amaurosis, Blurred vision - Ears, Nose & Throat Ears, Nose & Throat: denies: Ear pain, Hearing loss, Hearing aids, Tinnitus, Vertigo, Sore throat, Hoarseness - Cardiovascular Cariovascular: reports: Irregular heart rate, Palpitations, Exertional dyspnea, Decr. exercise tolerance. denies: Chest pain, Edema, Lightheadedness, Syncope, Orthopnea - Respiratory Respiratory: reports: Wheezing (Right now. It is new for her. She has no history of asthma. She has been wheezing since she was in the emergency room). denies: Cough, Sputum production - Gastrointestinal Gastrointestinal: reports: Abdominal pain (Waxes and wanes. Right pelvis. Worse with bending over. Hurts more when back hurts. Colonoscopy, endometrial biopsy, CT abdomen pelvis, MRI of pelvis all done.). denies: Diarrhea, Change in bowel habits, Black stools, Bloody stools, Nausea, Vomiting, Coffee grounds emesis, Reflux/heartburn - Genitourinary Genitourinary: reports: Urgency, Hematuria - Musculoskeletal Musculoskeletal: reports: Muscle pain, Back pain, Muscle aches, Stiffness, Other (Stiffness with walking, getting worse and worse. Right buttock tightens and goes down the leg as part of her chronic back pain and radiculopathy. Used to see [facility] for neurology and now sees [facility]) - Integumentary Integumentary: denies: Rash, Pruritis, Lesions - Neurological Neurological: reports: Pre-existing deficit, Abnormal gait, Incoordination. denies: General weakness, Focal weakness, Headache - Psychiatric Psychiatric: denies: Depression, Anxiety, Suicidal - Endocrine Endocrine: denies: Polyuria, Polydypsia, Polyphagia - Hematologic/Lymphatic Hematologic/Lymphatic: denies: Anemia, Bruising, Petechiae Prior Level of Functionality: Has slowed down over the last year. Denies use of durable medical equipment. Still cooks for self, cleans for herself, drives a car but [place] Exam - Vital Signs Reviewed Vital Signs: Yes Vital Signs: Vital Signs x48h Temp Pulse Resp BP Pulse Ox 11/23/21 15:00 115 H 22 128/100 H 11/23/21 14:40 121 H 128/86 H 11/23/21 14:00 108 H 22 133/86 H 94 11/23/21 13:30 120 H 24 120/90 H 11/23/21 13:00 126 H 22 140/90 H 92 11/23/21 12:30 126 H 24 135/82 H 92 11/23/21 12:00 36.8 C 112 H 18 127/86 H 94 11/23/21 11:30 96 22 108/82 H 98 11/23/21 11:00 98 22 114/86 H 97 11/23/21 10:40 91 26 H 115/88 H 92 11/23/21 10:25 89 22 86/52 L 94 11/23/21 09:55 36.8 C 120 H 18 120/77 100 11/23/21 09:48 36.8 C 120 H 20 120/77 100 - Physical Exam General Appearance: positive: No acute distress, Alert, Other (White female who looks stated age, well-groomed, well-nourished, constantly licking her lips with a very dry tongue. Baseline tremor is moderate so that her entire body is tremulous but worse in right arm, right leg and sometimes affecting vocal cords) Eyes Bilateral: positive: PERRL, EOMI ENT: positive: Dry mucous membranes, Other (Dry tongue. Dry lips.) Neck: positive: No JVD. negative: Stiff neck Respiratory: positive: No respiratory distress, Wheezes (this is new, she has no hx of asthma). negative: Rales, Rhonchi Cardiovascular: positive: Irregularly irregular, Tachycardia. negative: G allop/S4, Friction rub Peripheral Pulses: positive: 1+ Abdomen: positive: Non-tender, No organomegaly, Nml bowel sounds, No distention Skin: positive: Warm, Dry Extremities: positive: Full ROM, No pedal edema Neurologic/Psychiatric: positive: Oriented x3, CN's nml (2-12). negative: Motor nml (Diffuse body tremors, head tremor, vocal cord tremor. Right body tremors worse than left body tremors.) Conclusion/Plan - Problem List (1) Atrial fibrillation with RVR Conclusion/Plan: She does not appear to be having an ID. As such troponins were not done. TSH is normal. She does describe a subtle decrease in mobility that is getting steadily worse over the last year. She spends more time sitting than she ever did. Nevertheless her lung exam is negative for edema, or Homans' sign. There is no redness, no heat and the skin is soft and supple. Chest x-ray is abnormal and shows some signs of interstitial changes. She does not have a history of interstitial lung disease nor she on amiodarone. Plan: Observation status D-dimer Continue Cardizem drip from the emergency room and add Cardizem p.o. 4 times daily. stop drip when rate consistently <110 Add 1 dose of dig Echocardiogram CT of chest After 1 L of normal saline with bicarbonate. She has acute kidney injury now and i want to avoid making that worse (2) Wheezing Conclusion/Plan: This is new. She has no history of smoking, obstructive lung disease. It start ed in the last day. Not associated with phlegm or cough. But associated with labored breathing and his atrial fibrillation. Chest x-ray shows diffuse changes that can be either CHF or early interstitial changes. Plan: CT of chest for interstitial changes (3) Dehydration Conclusion/Plan: She states that she has been eating and drinking normally. Today was the only day where she could states she skipped a meal. She is taken her breakfast and her pills at 6 this morning but since being in the emergency room she was finally able to get half a sandwich and some water. Nevertheless, oral mucosa is quite dry as is her tongue. She also has acute kidney injury. Plan: 1 to 2 L of fluid. She did receive 1 L in the emergency room. (4) Parkinson disease Conclusion/Plan: Her tremors are fairly moderate on exam today. She tells me is because she has not had any of her medicine since 6 AM. I will resume that as soon as possible. (5) HTN (hypertension) Conclusion/Plan: At home she takes atenolol. This is to control her blood pressure and her tremors. Right now we have given her Cardizem and I will continue with that. But I will resume atenolol as well. Qualifiers: Hypertension type: primary hypertension Qualified Code(s): I10 - Essential (primary) hypertension (6) Chronic pain of right lower extremity Conclusion/Plan: She describes his pain in the right buttock, radiating sometimes on the right back hamstring. Sometimes into the right lower quadrant/pelvis. She has had extensive radiology eval, PT, massage therapy and chiropractic manipulation without relief of pain. It is between this and the Parkinson's disease it is slowing her down this year. Plan: At this time I would recommend were just going to resume her gabapentin. However, if she really is losing functional status, she might want to consider getting home to her family in the next few months so that if she deteriorates to the point of needing care, she can already be "home" and [facility] - Lab Results Lab results reviewed: Yes Fish Bones: 11/23/21 09:50 11/23/21 09:50 - Diagnostic Imaging Results Diagnostic Imaging Results: positive: Final report reviewed Diagnostic Imaging Results Comments: Diffuse interstitial thickening with patchy perihilar alveolar infiltrates. Differential diagnosis includes interstitial pulmonary edema or pneumonia. Normal heart size. Possible small bilateral pleural effusions. - EKG Results EKG Interpreted Independently: No EKG Comparison: No prior EKG EKG Findings: EKG not scanned into EMR yet. EKG report per ER MD is that it is atrial fibrillation with no acute ST-T wave changes Core Measures - Anticipated LOS I expect patient to be DC'd or transferred within 96 hours.: Yes - DVT/VTE - Prophylaxis VTE/DVT Prophylaxis med ordered at admit?: Yes
[2021-11-23] MEDS ORDERED: diltiaZEM INJ 125 MG in DEXTROSE 5% 100 ML IV SCH (16:00)
--- NOTE | 2021-11-23 16:35 | PHARMACY PROGRESS NOTE ---
- Best Possible Medication History Admit Date and Time: 11/23/21 1503 Processed by: Pharmacy Medication History completed: Yes Patient Interview: Completed Secondary Source(s): Physician records, Insurance records As the person ultimately responsible for medication therapy, providers are able to order a medication from an existing home medication list in [facility] via the "Reconcile Routine" prior to Confirmation of that medication by community support specialist. Such practice is discouraged except when the physician, in their clinical judgment, deems that a medical need exists for a medication without regard to previous use.
[2021-11-23] MEDS: CARBIDOPA/LEVODOPA 25 MG/100 MG TABLET PO SCH ×2 (16:45→20:44)
[2021-11-23] MEDS: APIXABAN 5 MG TABLET PO SCH ×2 (16:56→20:45)
[2021-11-23] MEDS ORDERED: SODIUM CHLORIDE 0.9% IV SCH (17:00)
[2021-11-23] MEDS ORDERED: SODIUM BICARBONATE IV SCH (17:00)
[2021-11-23] MEDS: LEVALBUTEROL 1.25 MG/3 ML NEB INH PRN ×3 (17:57→21:50)
[2021-11-23] MEDS: SODIUM CHLORIDE 0.9% 1,000 ML IV SCH (18:01)
[2021-11-23] MEDS: diltiaZEM 30 MG TABLET PO SCH ×2 (18:07→20:44)
[2021-11-23] MEDS: SODIUM CHLORIDE FLUSH 0.9% 10 ML SYRINGE IVP SCH (18:07)
[2021-11-23] MEDS: ACETAMINOPHEN 325 MG TABLET PO PRN (20:53)
[2021-11-23] MEDS ORDERED: SODIUM CHLORIDE INHALATION 3 ML NEB ONE (21:53)
[2021-11-24] MEDS: SODIUM CHLORIDE FLUSH 0.9% 10 ML SYRINGE IVP SCH ×3 (00:10→17:40)
[2021-11-24] MEDS: TEMAZEPAM 15 MG CAPSULE PO PRN (00:51)
[2021-11-24] MEDS: SODIUM CHLORIDE 0.9% 1,000 ML IV SCH ×2 (04:52→09:31)
[2021-11-24 05:29] LABS: CALCIUM 8.4 mg/dL (8.5-10.3); CREATININE 1.2 mg/dL (0.4-1.0); POTASSIUM 4.5 mmol/L (3.5-5.0)
[2021-11-24 05:32] LABS: PHOSPHORUS 3.7 mg/dL (2.5-4.6)
[2021-11-24] MEDS: APIXABAN 5 MG TABLET PO SCH ×2 (09:43→21:21)
[2021-11-24] MEDS: diltiaZEM 30 MG TABLET PO SCH ×4 (09:43→21:21)
[2021-11-24] MEDS: CARBIDOPA/LEVODOPA 25 MG/100 MG TABLET PO SCH ×4 (09:44→21:21)
--- NOTE | 2021-11-24 10:14 | PROVIDER PROGRESS NOTE ---
Subjective - Subjective Subjective: She is short of breath, she has needed increased levels of supplemental oxygen since admission, she is wheezing and states she has never had wheezing. Objective - Vital Signs/Intake & Output Vital Signs: Vital Signs Temp Pulse Resp BP BP Pulse Ox O2 Flow Rate 11/24/21 10:00 92 23 118/75 97 5 11/24/21 09:43 128/80 11/24/21 09:00 94 25 H 131/114 H 96 4 11/24/21 08:18 36.3 C L 11/24/21 08:00 85 28 H 140/117 H 100 6 11/24/21 07:33 8 11/24/21 06:52 81 28 H 111/73 100 8 Intake & Output: Intake & Output 11/21/21 11/22/21 11/23/21 11/24/21 23:59 23:59 23:59 23:59 Intake Total 5991.755 1301.083 Output Total 100 Balance 5006.403 5165.083 - Objective General Appearance: positive: Mild distress (wheezing and orthopneic) Eyes Bilateral: positive: Normal inspection ENT: positive: ENT inspection nml, No signs of dehydration Neck: positive: Nml inspection, Thyroid nml, No JVD Respiratory: positive: Wheezes Cardiovascular: positive: Regular rate & rhythm, No murmur (heart sounds barely audible due to diffuse wheezing) Abdomen: positive: Non-tender, Nml bowel sounds, No distention Skin: positive: No rash, Warm, Dry Extremities: positive: Non-tender, No pedal edema Neurologic/Psychiatric: positive: Oriented x3 - Lab Results Fish Bones: 11/23/21 09:50 11/24/21 05:14 Other Labs: Lab Results x24hrs 11/24/21 11/24/21 11/24/21 Range/Units 05:14 05:14 05:14 PT (9.9-12.6) secs INR (0.8-1.2) D-Dimer (200.0-255.0) ng/mL Sodium (135-145) mmol/L Potassium (3.5-5.0) mmol/L Chloride (101-111) mmol/L Carbon Dioxide (21-32) mmol/L Anion Gap (6-13) BUN (6-20) mg/dL Creatinine (0.4-1.0) mg/dL Estimated GFR (MDRD) (>89) Glucose (70-100) mg/dL Calcium (8.5-10.3) mg/dL Phosphorus 3.7 (2.5-4.6) mg/dL Magnesium 2.0 (1.7-2.8) mg/dL Total Bilirubin (0.2-1.0) mg/dL AST (10-42) IU/L ALT (10-60) IU/L Alkaline Phosphatase (42-121) IU/L Troponin I High Sens 16.5 H* (2.3-14.8) ng/L B-Natriuretic Peptide 608 H (5-100) pg/mL Total Protein (6.7-8.2) g/dL Albumin (3.2-5.5) g/dL Globulin (2.1-4.2) g/dL Albumin/Globulin Ratio (1.0-2.2) Lipase (22-51) U/L TSH (0.34-5.60) uIU/mL Nasal Screen MRSA (PCR) (NEGATIVE) SARS-CoV-2 (PCR) 11/24/21 11/23/21 11/23/21 Range/Units 05:14 15:49 15:15 PT (9.9-12.6) secs INR (0.8-1.2) D-Dimer > 1050.0 H (200.0-255.0) ng/mL Sodium 140 (135-145) mmol/L Potassium 4.5 (3.5-5.0) mmol/L Chloride 105 (101-111) mmol/L Carbon Dioxide 28 (21-32) mmol/L Anion Gap 7.0 (6-13) BUN 31 H (6-20) mg/dL Creatinine 1.2 H (0.4-1.0) mg/dL Estimated GFR (MDRD) 44 L (>89) Glucose 113 H (70-100) mg/dL Calcium 8.4 L (8.5-10.3) mg/dL Phosphorus (2.5-4.6) mg/dL Magnesium (1.7-2.8) mg/dL Total Bilirubin (0.2-1.0) mg/dL AST (10-42) IU/L ALT (10-60) IU/L Alkaline Phosphatase (42-121) IU/L Troponin I High Sens (2.3-14.8) ng/L B-Natriuretic Peptide (5-100) pg/mL Total Protein (6.7-8.2) g/dL Albumin (3.2-5.5) g/dL Globulin (2.1-4.2) g/dL Albumin/Globulin Ratio (1.0-2.2) Lipase (22-51) U/L TSH (0.34-5.60) uIU/mL Nasal Screen MRSA (PCR) NEGATIVE (NEGATIVE) SARS-CoV-2 (PCR) 11/23/21 11/23/21 11/23/21 Range/Units 10:10 10:05 09:50 PT 11.7 (9.9-12.6) secs INR 1.0 (0.8-1.2) D-Dimer (200.0-255.0) ng/mL Sodium (135-145) mmol/L Potassium (3.5-5.0) mmol/L Chloride (101-111) mmol/L Carbon Dioxide (21-32) mmol/L Anion Gap (6-13) BUN (6-20) mg/dL Creatinine (0.4-1.0) mg/dL Estimated GFR (MDRD) (>89) Glucose (70-100) mg/dL Calcium (8.5-10.3) mg/dL Phosphorus (2.5-4.6) mg/dL Magnesium (1.7-2.8) mg/dL Total Bilirubin (0.2-1.0) mg/dL AST (10-42) IU/L ALT (10-60) IU/L Alkaline Phosphatase (42-121) IU/L Troponin I High Sens (2.3-14.8) ng/L B-Natriuretic Peptide (5-100) pg/mL Total Protein (6.7-8.2) g/dL Albumin (3.2-5.5) g/dL Globulin (2.1-4.2) g/dL Albumin/Globulin Ratio (1.0-2.2) Lipase (22-51) U/L TSH 1.12 (0.34-5.60) uIU/mL Nasal Screen MRSA (PCR) (NEGATIVE) SARS-CoV-2 (PCR) NOT DETECTED 11/23/21 Range/Units 09:50 PT (9.9-12.6) secs INR (0.8-1.2) D-Dimer (200.0-255.0) ng/mL Sodium 141 (135-145) mmol/L Potassium 4.3 (3.5-5.0) mmol/L Chloride 103 (101-111) mmol/L Carbon Dioxide 29 (21-32) mmol/L Anion Gap 9.0 (6-13) BUN 31 H (6-20) mg/dL Creatinine 1.2 H (0.4-1.0) mg/dL Estimated GFR (MDRD) 44 L (>89) Glucose 165 H (70-100) mg/dL Calcium 9.0 (8.5-10.3) mg/dL Phosphorus (2.5-4.6) mg/dL Magnesium 1.9 (1.7-2.8) mg/dL Total Bilirubin 0.7 (0.2-1.0) mg/dL AST 32 (10-42) IU/L ALT < 10 L (10-60) IU/L Alkaline Phosphatase 126 H (42-121) IU/L Troponin I High Sens (2.3-14.8) ng/L B-Natriuretic Peptide (5-100) pg/mL Total Protein 6.4 L (6.7-8.2) g/dL Albumin 3.3 (3.2-5.5) g/dL Globulin 3.1 (2.1-4.2) g/dL Albumin/Globulin Ratio 1.1 (1.0-2.2) Lipase 27 (22-51) U/L TSH (0.34-5.60) uIU/mL Nasal Screen MRSA (PCR) (NEGATIVE) SARS-CoV-2 (PCR) Assessment/Plan - Problem List (1) Acute respiratory failure with hypoxia Impression: Wheezing was audible on the H&P of the admitting Hospitalist. Her admitting chest x-ray showed interstitial changes that would be consistent with CHF versus atypical pneumonia. She has needed increased supplemental O2 overnight, since being hospitalized, has tachypnea at rest, is orthopneic and has audible wheezing everywhere. CT scan chest was done today and is consistent with pulmonary edema and now her pleural effusion is growing on one side. The patient will be admitted to Inpatient status from Observation status because of worsening hypoxia. Will treat the underlying pulmonary edema. We will check troponins, BNP and follow her BNP daily Await Echo result Will give supplemental oxygen, tapering down to room air as tolerated, keeping sats >90-92% (In a patient who has no underlying COPD or history of asthma). (2) Pleural effusion Conclusion/Plan: The Echo results and CT chest both confirm she has a significant pleural effusion on the left side. This is most likely from CHF, unlikely to be from malignancy with no other findings on chest CT, unlikely to be from infection given no other infiltrate or evidence of tuberculosis, not Hypothyroid, and probably also not from connective tissue disease without any history of this. She does not have a history of interstitial lung disease nor was she on amiodarone. Will begin Lasix IV. IV fluids going at 100 cc an hour have been decreased to TKO, and will now be stopped. (3) Atrial fibrillation with RVR Conclusion/Plan: She converted to normal sinus rhythm late last night, thus the Cardizem drip is off and switching to po Cardizem has started. Also, her home B-kendrick is continuing. TSH is normal. No PE was reported on CT and she had a neg Homans sign. She had no troponins done, for unclear reasons, and troponin will be ordered today to R/O ACS as cause of new onset afib. She does not have a history of lung disease. The Echo was done today and shows that she has moderate (or more significant) mitral stenosis and mitral regurgitation and a very large left atrium. This is likely the cause of her Afib. Will continue the Eliquis that was started. (4) JERRY Conclusion/Plan: This was felt to be from dehydration, given her exam yesterday and give her her newly elevated BUN/creatinine. She received 1 L fluid in the ED and another liter after admission. The creatinine is not changing today. This may be due to the lower blood pressure causing poor perfusion to the kidneys, or may be from Cardio-Renal syndrome and renal venous volume overload. Will continue to avoid nephrotoxins. We will start IV Lasix today to manage #1 and #2 above. Follow BMP daily (5) Parkinson disease Conclusion/Plan: Her tremors were noted on admission exam because she had not had any of her medicines . We have now resumed her home Parkinsons meds. (6) Hx HTN (hypertension) Conclusion/Plan: At home she took atenolol to control her blood pressure and her tremors. Blood pressure has been soft today, since being put on Cardizem and from dehydration. (7) Chronic pain of right lower extremity Conclusion/Plan: She describes pain in the right buttock, radiating sometimes on the right back hamstring and sometimes into the right lower quadrant/pelvis. She has had exten sive radiology eval, PT, massage therapy and chiropractic manipulation without relief of pain. Between this and the Parkinson's disease, it is slowing her down. We have resumed her gabapentin. She is planning on moving back home to her family in [facility] in the next few months so that if she deteriorates to needing more care, she can already be "home" in [facility], she stated. (8) Dehydration Conclusion/Plan: Resolved with 1 day of iv fluids.
--- NOTE | 2021-11-24 10:59 | CT Report ---
PROCEDURE: CHEST W INDICATIONS: new intersitial changes w new atrial fib CONTRAST: IV CONTRAST: Optiray 320 ml: 100 PO CONTRAST: *NO PO CONTRAST TECHNIQUE: After the administration of intravenous contrast, 1 mm axial images were acquired from the pulmonary apices through the posterior costophrenic angles. Axial 5 mm soft tissue kernel reconstructions were performed as well as 8 mm axial MIP and coronal and sagittal 5 mm reformations. For radiation dose reduction, the following was used: automated exposure control, adjustment of mA and/or kV according to patient size. COMPARISON: 11/23/2021 chest radiograph FINDINGS: Image quality: Motion degraded Lungs and pleura: Perihilar groundglass opacities with superimposed septal thickening. Superimposed a telectasis.) Left moderate pleural effusions. Mediastinum: Prominent mediastinal hilar lymph nodes are borderline enlarged by size criteria, possib ly reactive, indeterminate. Cardiomegaly and biatrial enlargement. No thoracic aortic aneurysm. No ce ntral pulmonary embolism. Bones and chest wall: Small thyroid nodules do not require dedicated follow-up per current guidelines . No hematoma. No axillary adenopathy. No acute or suspicious osseous abnormality. Abdomen: Abdominal findings are separately dictated. IMPRESSION: Pulmonary edema and bilateral pleural effusions. Perihilar groundglass opacities likely representing advanced pulmonary edema, with differential including infectious or inflammatory etiologies. Correlat e with clinical presentation. Biatrial enlargement. Other findings as above. Abdominal findings are s eparately dictated. Reviewed by: Celestine Good MD on 11/24/2021 10:58 AM PDT Approved by: Celestine Good MD on 11/24/2021 10:58 AM PDT Station ID: [id number]
--- NOTE | 2021-11-24 11:07 | CT Report ---
PROCEDURE: ABDOMEN W INDICATIONS: Concern for Kidney Lac CONTRAST: IV CONTRAST: Optiray 320 ml: 100 PO CONTRAST: *NO PO CONTRAST TECHNIQUE: After the administration of oral and intravenous contrast, 5 mm thick sections acquired from the diap hragms to the iliac crests. 5 mm thick coronal and sagittal reformats were acquired. For radiation dose reduction, the following was used: automated exposure control, adjustment of mA and/or kV accor ding to patient size. COMPARISON: 10/13/2015 FINDINGS: Image quality: Motion degraded Lung bases: Chest findings are separately dictated. Solid organs: Liver is unremarkable. Gallbladder is collapsed. No biliary ductal dilation. Pancreas i s within normal limits. Spleen is unremarkable. Stable small left adrenal nodule/thickening since 201 6. Subcentimeter lesions are too small to characterize in the kidneys. Motion degradation significantly limits evaluation for focal renal laceration, however, within this limitation, there is no perinephri c hematoma or contusion. Mild perinephric fat stranding is favored to be chronic/senescent in etiolog y. The renal veins are patent. There is stenosis at the renal artery ostia, with distal normal opacif ication. Peritoneum and bowel: No bowel obstruction. No pathologic ascites. No large hematoma. Nodes and vessels: Atherosclerotic disease without abdominal aortic aneurysm. No pathologic adenopathy by size criteria. Bones: No suspicious bony lesions. No vertebral body compression fractures. Spondylosis. Miscellaneous: No ventral hernias. IMPRESSION: Significant motion degradation. No secondary findings of traumatic injury in the abdomen. If there is high clinical concern, repeat CT could be obtained. Other stable/incidental findings above. Chest fi ndings are separately dictated. Reviewed by: Celestine Good MD on 11/24/2021 11:06 AM PDT Approved by: Celestine Good MD on 11/24/2021 11:06 AM PDT Station ID: [id number]
[2021-11-24] MEDS ORDERED: FUROSEMIDE 40 MG/4 ML VIAL IVP STA (11:15)
[2021-11-24] MEDS: LEVALBUTEROL 1.25 MG/3 ML NEB INH PRN (14:49)
[2021-11-24] MEDS: FUROSEMIDE 40 MG/4 ML VIAL IVP SCH (17:41)
[2021-11-24] MEDS ORDERED: AMIODARONE 150 MG/100 ML 100 ML IV ONE (22:02)
[2021-11-24] MEDS ORDERED: AMIODARONE 360 MG/200 ML 200 ML IV ONE (22:04)
[2021-11-24] MEDS: ACETAMINOPHEN 325 MG TABLET PO PRN (22:14)
[2021-11-25] MEDS: TEMAZEPAM 15 MG CAPSULE PO PRN ×2 (00:15→23:56)
[2021-11-25] MEDS: SODIUM CHLORIDE FLUSH 0.9% 10 ML SYRINGE IVP SCH ×4 (00:32→18:38)
[2021-11-25] MEDS: AMIODARONE 360 MG/200 ML 200 ML IV SCH ×2 (04:38→16:19)
[2021-11-25] MEDS: ACETAMINOPHEN 325 MG TABLET PO PRN (04:48)
[2021-11-25] MEDS: FUROSEMIDE 40 MG/4 ML VIAL IVP SCH ×2 (06:45→14:30)
[2021-11-25 07:48] LABS: BASOPHILS # (AUTO) 0.1 10^3/uL (0.0-0.1); BASOPHILS % (AUTO) 0.5 %; EOSINOPHILS # (AUTO) 0.3 10^3/uL (0.0-0.7); EOSINOPHILS % (AUTO) 2.9 %; HCT - HEMATOCRIT 37.1 % (37.0-47.0); HGB - HEMOGLOBIN 12.2 g/dL (12.0-16.0); LYMPHOCYTES # (AUTO) 1.5 10^3/uL (1.5-3.5); MEAN CORPUSCULAR HEMOGLOBIN 31.9 pg (27.0-31.0); MEAN CORPUSCULAR HGB CONC 32.9 g/dL (32.0-36.0); MEAN CORPUSCULAR VOLUME 97.1 fL (81.0-99.0); MEAN PLATELET VOLUME 9.3 fL (7.9-10.8); MONOCYTES # (AUTO) 0.8 10^3/uL (0.0-1.0); MONOCYTES % (AUTO) 8.5 %; NEUTROPHILS # (AUTO) 6.8 10^3/uL (1.5-6.6); PLT - PLATELET COUNT 210 10^3/uL (130-450); RED BLOOD COUNT 3.82 10^6/uL (4.20-5.40); WHITE BLOOD COUNT 9.4 x10^3/uL (4.8-10.8)
[2021-11-25 08:00] LABS: CALCIUM 8.7 mg/dL (8.5-10.3); CREATININE 1.1 mg/dL (0.4-1.0); POTASSIUM 3.7 mmol/L (3.5-5.0)
[2021-11-25] MEDS ORDERED: diltiaZEM 30 MG TABLET PO SCH (08:10)
[2021-11-25] MEDS ORDERED: POTASSIUM CHLORIDE 20 MEQ TABLET PO ONE ×2 (08:24→15:12)
--- NOTE | 2021-11-25 08:47 | PROVIDER PROGRESS NOTE ---
Assessment/Plan - Problem List (1) Acute respiratory failure with hypoxia Assessment/Plan: Wheezing was audible on the H&P of the admitting Hospitalist. Her admitting chest x-ray showed interstitial changes that would be consistent with CHF versus atypical pneumonia. CT scan chest was done today and is consistent with pulmonary edema and now her pleural effusion is growing on one side. She has needed increased supplemental O2 overnight, since being hospitalized, has tachypnea at rest, is orthopneic and has audible wheezing everywhere. The patient will be admitted to Inpatient status from Observation status because of worsening hypoxia. Will treat the underlying pulmonary edema. We will check troponins, BNP and follow her BNP daily Await Echo result Will give supplemental oxygen, tapering down to room air as tolerated, keeping sats >90-92% (In a patient who has no underlying COPD or history of asthma). (2) Pleural effusion Conclusion/Plan: The Echo results and CT chest both confirm she has a significant pleural effusion on the left side. This is most likely from CHF, unlikely to be from malignancy with no other findings on chest CT, unlikely to be from infection given no other infiltrate or evidence of tuberculosis, not Hypothyroid, and probably also not from connective tissue disease without any history of this. She does not have a history of interstitial lung disease nor was she on amiodarone. Will begin Lasix IV. IV fluids going at 100 cc an hour have been decreased to TKO, and will now be stopped. (3) Atrial fibrillation with RVR Conclusion/Plan: She converted to normal sinus rhythm late last night, thus the Cardizem drip is off and switching to po Cardizem has started. Also, her home B-kendrick is continuing. TSH is normal. No PE was reported on CT and she had a neg Homans sign. She had no troponins done, for unclear reasons, and troponin will be ordered today to R/O ACS as cause of new onset afib. She does not have a history of lung disease. The Echo was done today and shows that she has moderate (or more significant) and a very large left atrium. This is likely the cause of her Afib. Will continue the Eliquis that was started. mitral stenosis and mitral regurgitation (4) JERRY Conclusion/Plan: This was felt to be from dehydration, given her exam yesterday and give her her newly elevated BUN/creatinine. She received 1 L fluid in the ED and another liter after admission. The creatinine is not changing today. This may be due to the lower blood pressure causing poor perfusion to the kidneys, or may be from Cardio-Renal syndrome and renal venous volume overload. Will continue to avoid nephrotoxins. We will start IV Lasix today to manage #1 and #2 above. Follow BMP daily (5) Parkinson disease Conclusion/Plan: Her tremors were noted on admission exam because she had not had any of her medicines . We have now resumed her home Parkinsons meds. (6) Hx HTN (hypertension) Conclusion/Plan: At home she took atenolol to control her blood pressure and her tremors. Blood pressure has been soft today, since being put on Cardizem and from dehydration. (7) Chronic pain of right lower extremity Conclusion/Plan: She describes pain in the right buttock, radiating sometimes on the right back hamstring and sometimes into the right lower quadrant/pelvis. She has had extensive radiology eval, PT, massage therapy and chiropractic manipulation without relief of pain. Between this and the Parkinson's disease, it is slowing her down. We have resumed her gabapentin. She is planning on moving back home to her family in [facility] in the next few months so that if she deteriorates to needing more care, she can already be "home" in [facility], she stated. (8) Dehydration Conclusion/Plan: Resolved with 1 day of iv fluids. - Current Meds Current Meds: Current Medications Generic Name Dose Route Start Last Admin Trade Name Freq PRN Reason Stop Dose Admin Acetaminophen 650 mg 11/23/21 15:03 11/25/21 04:48 Acetaminophen 325 Mg Tablet PO 650 mg Q4HR PRN Administration Pain 1 to 4, or Fever Apixaban 5 mg 11/23/21 15:05 11/24/21 21:21 Apixaban 5 Mg Tablet PO 5 mg BID POLLY Administration Carbidopa/Levodopa 1 tab 11/23/21 17:00 11/24/21 21:21 Carbidopa/Levodopa 25 Mg/100 Mg Tablet PO 1 tab QID POLLY Administration Furosemide 40 mg 11/24/21 18:00 11/25/21 06:45 Furosemide 40 Mg/4 Ml Vial IVP 40 mg BIDDIURETIC POLLY Administration Sodium Chloride 1,000 mls @ 30 mls/hr 11/24/21 09:24 11/24/21 09:31 Normal Saline 0.9% IV 30 mls/hr .[id number] POLLY Administration TKO Amiodarone HCl/Dextrose 200 mls @ 16.667 mls/hr 11/25/21 04:00 11/25/21 04:38 Nexterone 360 Mg/200 Ml IV 0.5 mg/min .Q12H POLLY 16.667 mls/hr Administration 0.5 MG/MIN Levalbuterol HCl 1.25 mg 11/23/21 16:57 11/24/21 14:49 Levalbuterol 1.25 Mg/3 Ml Neb INH 1.25 mg Q4H PRN Administration Shortness of Air/Wheezing Oxycodone HCl 5 mg 11/23/21 15:03 11/25/21 04:48 Oxycodone 5 Mg Tablet PO 5 mg Q4HR PRN Administration Pain 5 to 7 Sodium Chloride 10 ml 11/23/21 17:00 11/25/21 00:32 Sodium Chloride Flush 0.9% 10 Ml Syringe IVP Not Given 0100,0900,1700 POLLY Temazepam 15 mg 11/24/21 00:43 11/25/21 00:15 Temazepam 15 Mg Capsule PO 15 mg QPM PRN Administration Insomnia - Lab Result Fish Bone Diagrams: 11/25/21 07:43 11/25/21 07:43 - Additional Planning My Orders: My Active Orders 11/24/21 09:24 Sodium Chloride 0.9% [Normal Saline 0.9%] 1,000 ml IV TKO 11/24/21 11:16 Telemetry- [RC] Q4HR 11/24/21 11:18 Miscellaenous Nursing Order [RC] QSHIFT 11/24/21 18:00 FUROSEMIDE INJ 40mg VIAL [LASIX INJ 40 mg VIAL] 40 mg IVP BIDDIURETIC 11/25/21 07:40 MAGNESIUM [CHEM] Routine PHOSPHORUS [CHEM] Routine 11/25/21 09:00 Metoprolol Tartrate [Lopressor] 25 mg PO QID 11/26/21 05:00 BMP - BASIC METABOLIC PANEL [CHEM] DAILYLAB BNP - B-NATRIURETIC PEPTIDE [IAI] DAILYLAB CBC - COMP BLD CT W/AUTO DIFF [HEME] DAILYLAB 11/27/21 05:00 BMP - BASIC METABOLIC PANEL [CHEM] DAILYLAB CBC - COMP BLD CT W/AUTO DIFF [HEME] DAILYLAB 11/28/21 05:00 BMP - BASIC METABOLIC PANEL [CHEM] DAILYLAB CBC - COMP BLD CT W/AUTO DIFF [HEME] DAILYLAB Objective Vital Signs: Vital Signs - 24 hr 11/24/21 11/24/21 11/24/21 09:00 09:43 10:00 Temperature Heart Rate Heart Rate [ 94 92 Monitoring electrodes] Respiratory 25 H 23 Rate Blood Pressure 128/80 Blood Pressure 131/114 H 118/75 [Left] O2 Saturation 96 97 If not protocol 4 5 : Oxygen Flow, liters/minute 11/24/21 11/24/21 11/24/21 11:00 12:00 12:22 Temperature 36.8 C Heart Rate Heart Rate [ 92 95 Monitoring electrodes] Respiratory 35 H 21 Rate Blood Pressure Blood Pressure 116/89 H 128/111 H [Left] O2 Saturation 94 93 If not protocol 5 5 : Oxygen Flow, liters/minute 11/24/21 11/24/21 11/24/21 13:00 13:01 14:00 Temperature Heart Rate Heart Rate [ 93 93 Monitoring electrodes] Respiratory 21 26 H Rate Blood Pressure 101/54 L Blood Pressure 101/54 L 115/95 H [Left] O2 Saturation 94 97 If not protocol 5 5 : Oxygen Flow, liters/minute 11/24/21 11/24/21 11/24/21 14:50 15:00 16:00 Temperature 37.1 C Heart Rate 97 Heart Rate [ 99 102 H Monitoring electrodes] Respiratory 11 L 28 H 21 Rate Blood Pressure Blood Pressure 104/79 106/83 H [Left] O2 Saturation 95 97 If not protocol 6 5 5 : Oxygen Flow, liters/minute 11/24/21 11/24/21 11/24/21 17:00 17:40 18:00 Temperature Heart Rate Heart Rate [ 104 H 106 H Monitoring electrodes] Respiratory 17 24 Rate Blood Pressure 122/64 Blood Pressure 122/64 132/87 H [Left] O2 Saturation 94 94 If not protocol 40 40 : Oxygen Flow, liters/minute 11/24/21 11/24/21 11/24/21 19:00 20:00 21:00 Temperature 36.9 C Heart Rate Heart Rate [ 111 H 113 H 104 H Monitoring electrodes] Respiratory 30 H 28 H 19 Rate Blood Pressure Blood Pressure 120/67 135/75 H 117/77 [Left] O2 Saturation 94 92 95 If not protocol 40 40 40 : Oxygen Flow, liters/minute 11/24/21 11/24/21 11/24/21 21:21 21:39 22:00 Temperature Heart Rate Heart Rate [ 144 H 137 H Monitoring electrodes] Respiratory 26 H 30 H Rate Blood Pressure 117/77 Blood Pressure 133/84 H 126/81 H [Left] O2 Saturation 97 95 If not protocol 40 40 : Oxygen Flow, liters/minute 11/24/21 11/25/21 11/25/21 23:00 00:00 01:00 Temperature 37.0 C Heart Rate Heart Rate [ 120 H 127 H 123 H Monitoring electrodes] Respiratory 28 H 24 24 Rate Blood Pressure Blood Pressure 108/69 103/59 L 107/80 [Left] O2 Saturation 94 96 97 If not protocol 40 40 40 : Oxygen Flow, liters/minute 11/25/21 11/25/21 11/25/21 02:00 03:00 04:00 Temperature Heart Rate Heart Rate [ 105 H 105 H 111 H Monitoring electrodes] Respiratory 39 H 18 16 Rate Blood Pressure Blood Pressure 107/83 H 99/69 107/79 [Left] O2 Saturation 93 96 96 If not protocol 40 40 40 : Oxygen Flow, liters/minute 11/25/21 11/25/21 11/25/21 05:00 06:00 06:55 Temperature Heart Rate Heart Rate [ 112 H 122 H 118 H Monitoring electrodes] Respiratory 22 18 18 Rate Blood Pressure Blood Pressure 120/87 H 120/56 L 138/94 H [Left] O2 Saturation 94 94 96 If not protocol 40 40 40 : Oxygen Flow, liters/minute 11/25/21 08:00 Temperature 37.1 C Heart Rate Heart Rate [ 128 H Monitoring electrodes] Respiratory 23 Rate Blood Pressure Blood Pressure 128/75 [Left] O2 Saturation 95 If not protocol 40 : Oxygen Flow, liters/minute Oxygen O2 Source [facility] I&O (Last 24 Hrs): Intake and Output Totals x24h 11/23/21 11/24/21 11/25/21 23:59 23:59 23:59 Intake Total 9057.588 8734.083 300 Output Total 100 2615 1150 Balance 3968.371 7129.083 -850 - Results Results: Laboratory Results WBC 9.4 x10^3/uL (4.8-10.8) 11/25/21 07:43 RBC 3.82 10^6/uL (4.20-5.40) L 11/25/21 07:43 Hgb 12.2 g/dL (12.0-16.0) 11/25/21 07:43 Hct 37.1 % (37.0-47.0) 11/25/21 07:43 MCV 97.1 fL (81.0-99.0) 11/25/21 07:43 MCH 31.9 pg (27.0-31.0) H 11/25/21 07:43 MCHC 32.9 g/dL (32.0-36.0) 11/25/21 07:43 RDW 14.0 % (12.0-15.0) 11/25/21 07:43 Plt Count 210 10^3/uL (130-450) 11/25/21 07:43 MPV 9.3 fL (7.9-10.8) 11/25/21 07:43 Neut # (Auto) 6.8 10^3/uL (1.5-6.6) H 11/25/21 07:43 Lymph # (Auto) 1.5 10^3/uL (1.5-3.5) 11/25/21 07:43 [place] # (Auto) 0.8 10^3/uL (0.0-1.0) 11/25/21 07:43 Eos # (Auto) 0.3 10^3/uL (0.0-0.7) 11/25/21 07:43 Baso # (Auto) 0.1 10^3/uL (0.0-0.1) 11/25/21 07:43 Absolute Nucleated RBC 0.00 x10^3/uL 11/25/21 07:43 Nucleated RBC % 0.0 /100WBC 11/25/21 07:43 PT 11.7 secs (9.9-12.6) 11/23/21 10:05 INR 1.0 (0.8-1.2) 11/23/21 10:05 D-Dimer > 1050.0 ng/mL (200.0-255.0) H 11/23/21 15:15 Sodium 142 mmol/L (135-145) 11/25/21 07:43 Potassium 3.7 mmol/L (3.5-5.0) 11/25/21 07:43 Chloride 102 mmol/L (101-111) 11/25/21 07:43 Carbon Dioxide 30 mmol/L (21-32) 11/25/21 07:43 Anion Gap 10.0 (6-13) 11/25/21 07:43 BUN 23 mg/dL (6-20) H 11/25/21 07:43 Creatinine 1.1 mg/dL (0.4-1.0) H 11/25/21 07:43 Estimated GFR (MDRD) 49 (>89) L 11/25/21 07:43 Glucose 118 mg/dL (70-100) H 11/25/21 07:43 Calcium 8.7 mg/dL (8.5-10.3) 11/25/21 07:43 Phosphorus 3.7 mg/dL (2.5-4.6) 11/24/21 05:14 Magnesium 2.0 mg/dL (1.7-2.8) 11/24/21 05:14 Total Bilirubin 0.7 mg/dL (0.2-1.0) 11/23/21 09:50 AST 32 IU/L (10-42) 11/23/21 09:50 ALT < 10 IU/L (10-60) L 11/23/21 09:50 Alkaline Phosphatase 126 IU/L (42-121) H 11/23/21 09:50 Troponin I High Sens 16.5 ng/L (2.3-14.8) H* 11/24/21 05:14 B-Natriuretic Peptide 612 pg/mL (5-100) H 11/25/21 07:43 Total Protein 6.4 g/dL (6.7-8.2) L 11/23/21 09:50 Albumin 3.3 g/dL (3.2-5.5) 11/23/21 09:50 Globulin 3.1 g/dL (2.1-4.2) 11/23/21 09:50 Albumin/Globulin Ratio 1.1 (1.0-2.2) 11/23/21 09:50 Lipase 27 U/L (22-51) 11/23/21 09:50 TSH 1.12 uIU/mL (0.34-5.60) 11/23/21 09:50 Nasal Screen MRSA (PCR) NEGATIVE (NEGATIVE) 11/23/21 15:49 SARS-CoV-2 (PCR) NOT DETECTED 11/23/21 10:10 - Procedures Procedures: Procedures EXCISION OF CECUM, ENDO (11/07/18) EXCISION OF SIGMOID COLON, ENDO (11/07/18)
[2021-11-25] MEDS: CARBIDOPA/LEVODOPA 25 MG/100 MG TABLET PO SCH ×4 (09:41→21:04)
[2021-11-25] MEDS: APIXABAN 5 MG TABLET PO SCH ×2 (09:42→21:04)
[2021-11-25] MEDS: METOPROLOL TARTRATE 25 MG TABLET PO SCH ×4 (09:42→21:04)
[2021-11-25 10:03] LABS: PHOSPHORUS 3.5 mg/dL (2.5-4.6)
--- NOTE | 2021-11-25 11:55 | PROVIDER PROGRESS NOTE ---
Subjective - Prog Note Date Prog Note Date: 11/25/21 - Subjective Pt reports feeling: Improved (Her shortness of breath is much better, she denies any more wheezing, she is walking independently to the bathroom with increased urination. She is still wearing O2 per Oxymizer and appears short of breath with speaking), Worse (She had severe right hip pain that radiated around her entire pelvis because of being in bed for the last 24 hours. Her right hip pain is chronic) Objective - Vital Signs/Intake & Output Vital Signs: Vital Signs Temp Pulse Resp BP BP Pulse Ox O2 Flow Rate 11/25/21 11:00 119 H 20 120/68 98 40 11/25/21 10:00 113 H 20 115/76 97 40 11/25/21 09:42 121/89 H 11/25/21 09:00 121 H 32 H 121/89 H 97 40 11/25/21 08:00 37.1 C 128 H 23 128/75 95 40 Intake & Output: Intake & Output 11/22/21 11/23/21 11/24/21 11/25/21 23:59 23:59 23:59 23:59 Intake Total 4988.501 6195.083 390 Output Total 100 2615 1700 Balance 4829.875 5774.083 -1310 - Objective General Appearance: positive: Mild distress (She is tachypneic while speaking, wearing O2 via Oxymizer), Other (Disheveled) Eyes Bilateral: positive: Normal inspection ENT: positive: No signs of dehydration Neck: positive: Nml inspection, No JVD Respiratory: positive: Rales (up 1/2 bilat) Cardiovascular: positive: Irregularly irregular, Tachycardia (No murmur is audible over the rails and due to the tachycardia) Abdomen: positive: Non-tender, Nml bowel sounds, No distention Skin: positive: Warm, Dry Extremities: positive: Non-tender, No pedal edema, Other (No tenderness to palpation of R hip) Neurologic/Psychiatric: positive: Oriented x3 (Non-focal) - Lab Results Fish Bones: 11/25/21 07:43 11/25/21 14:02 Other Labs: Lab Results x24hrs 11/25/21 11/25/21 11/25/21 Range/Units 07:43 07:43 07:43 WBC (4.8-10.8) x10^3/uL RBC (4.20-5.40) 10^6/uL Hgb (12.0-16.0) g/dL Hct (37.0-47.0) % MCV (81.0-99.0) fL MCH (27.0-31.0) pg MCHC (32.0-36.0) g/dL RDW (12.0-15.0) % Plt Count (130-450) 10^3/uL MPV (7.9-10.8) fL Neut # (Auto) (1.5-6.6) 10^3/uL Lymph # (Auto) (1.5-3.5) 10^3/uL Johnson # (Auto) (0.0-1.0) 10^3/uL Eos # (Auto) (0.0-0.7) 10^3/uL Baso # (Auto) (0.0-0.1) 10^3/uL Absolute Nucleated RBC x10^3/uL Nucleated RBC % /100WBC Sodium 142 (135-145) mmol/L Potassium 3.7 (3.5-5.0) mmol/L Chloride 102 (101-111) mmol/L Carbon Dioxide 30 (21-32) mmol/L Anion Gap 10.0 (6-13) BUN 23 H (6-20) mg/dL Creatinine 1.1 H (0.4-1.0) mg/dL Estimated GFR (MDRD) 49 L (>89) Glucose 118 H (70-100) mg/dL Calcium 8.7 (8.5-10.3) mg/dL Phosphorus 3.5 (2.5-4.6) mg/dL Magnesium 2.0 (1.7-2.8) mg/dL B-Natriuretic Peptide 612 H (5-100) pg/mL 11/25/21 Range/Units 07:43 WBC 9.4 (4.8-10.8) x10^3/uL RBC 3.82 L (4.20-5.40) 10^6/uL Hgb 12.2 (12.0-16.0) g/dL Hct 37.1 (37.0-47.0) % MCV 97.1 (81.0-99.0) fL MCH 31.9 H (27.0-31.0) pg MCHC 32.9 (32.0-36.0) g/dL RDW 14.0 (12.0-15.0) % Plt Count 210 (130-450) 10^3/uL MPV 9.3 (7.9-10.8) fL Neut # (Auto) 6.8 H (1.5-6.6) 10^3/uL Lymph # (Auto) 1.5 (1.5-3.5) 10^3/uL Johnson # (Auto) 0.8 (0.0-1.0) 10^3/uL Eos # (Auto) 0.3 (0.0-0.7) 10^3/uL Baso # (Auto) 0.1 (0.0-0.1) 10^3/uL Absolute Nucleated RBC 0.00 x10^3/uL Nucleated RBC % 0.0 /100WBC Sodium (135-145) mmol/L Potassium (3.5-5.0) mmol/L Chloride (101-111) mmol/L Carbon Dioxide (21-32) mmol/L Anion Gap (6-13) BUN (6-20) mg/dL Creatinine (0.4-1.0) mg/dL Estimated GFR (MDRD) (>89) Glucose (70-100) mg/dL Calcium (8.5-10.3) mg/dL Phosphorus (2.5-4.6) mg/dL Magnesium (1.7-2.8) mg/dL B-Natriuretic Peptide (5-100) pg/mL Assessment/Plan - Problem List (1) Acute respiratory failure with hypoxia Impression: Wheezing was audible on the H&P of the admitting Hospitalist. Her admitting chest x-ray showed interstitial changes that suggested either CHF versus atypical pneumonia. CT scan chest was done after admission and it was consistent with pulmonary edema and a pleural effusion. She has needed increased supplemental O2 overnight, since being hospitalized, has tachypnea at rest, is orthopneic and has audible wheezing everywhere. The patient was admitted to Inpatient status from Observation status because of worsening hypoxia. We are treating the underlying pulmonary edema. She is still requiring supplemental oxygen, plan tapering down to room air as tolerated, keeping sats >90-92% (2) Pleural effusion Conclusion/Plan: The Echo results and CT chest both confirm she has a significant pleural effusion on the left side. This is most likely from CHF, unlikely to be from malignancy with no other findings on chest CT, unlikely to be from infection given no other infiltrate or evidence of tuberculosis, not Hypothyroid, and probably also not from connective tissue disease without any history of this. She does not have a history of interstitial lung disease nor was she on amiodarone. I suspect the CHF including pleural effusion is from days of having A. fib with RVR, since she complained of palpitations for 4 days. She is getting Lasix IV b.i.d. Follow I's and O's, daily weight, daily electrolytes and magnesium and replace if low (3) Atrial fibrillation with RVR Conclusion/Plan: She presented in new onset Afib, converted to normal sinus rhythm her first night. She then went into atrial flutter with RVR over her second night (last night) and has been started on IV amiodarone drip overnight. Her TSH is normal. No PE was reported on CT and she had a neg Homans sign. Troponins done have R/O ACS as cause of new onset afib and Echo shows no regional wall motion abnormalities. She does not have a history of lung disease. The Echo was done yesterday and shows that she has moderate (or more significant) MS and MR and a very large left atrium. This valvular heart disease is likely the cause of her Afib. Will continue the Eliquis that was started. Continue with amiodarone IV, hoping that this will converted back to sinus rhythm. Will add beta-kendrick orally for better heart rate control and stop the p.o. Cardizem (4) Mitral stenosis and mitral regurgitation Conclusion/Plan: The Echo was done yesterday and shows that she has moderate (or more significant) MS and MR and a very large left atrium. This valvular heart disease is likely the cause of her Afib. She will need further management with cardiology as an outpatient after discharge. This was discussed with her today. (5) JERRY Conclusion/Plan: This was felt to be from dehydration, given her exam and given her her elevated BUN/creatinine at admission. She received 1 L fluid in the ED and another liter after admission. However, after starting IV b.i.d. Lasix, her BUN/creatinine has improved to 23/1.1 today Therefore, she had Cardio-Renal syndrome with renal venous volume overload. Will continue to avoid nephrotoxins. Continue IV Lasix Follow BMP daily (6) Parkinson disease Conclusion/Plan: Her tremors were noted on admission exam because she had not had any of her medicines for nearly a day, while in the ED. We have now resumed her home Parkinsons meds. We will request OT consult to suggest any hand devices to help her with feeding and chores (7) Hx HTN (hypertension) Conclusion/Plan: At home she took atenolol to control her blood pressure and her tremors. Blood pressure has been soft, since being put on Cardizem and from dehydration. Atenolol will be changed to metoprolol tartrate and then eventually hopefully metoprolol succinate when the dose is determined (8) Chronic pain of right lower extremity Conclusion/Plan: Her pain in the right hip was 10/10 overnight. She describes pain in the right buttock, radiating sometimes on the right back hamstring and sometimes into the right lower quadrant/pelvis. She has had extensive radiology eval, PT, massage therapy and chiropractic manipulation without relief of pain. Between this and the Parkinson's disease, it is slowing her down. She is planning on moving back home to her family in [facility] in the next few months so that if she deteriorates to needing more care, she can already be "home" in [facility], she stated. We have resumed her gabapentin. Will request PT consult today to help localize the source of the pain and suggest treatment (9) Dehydration Conclusion/Plan: Resolved with 1 day of iv fluids. Fluids were stopped when wheezing and CHF developed.
[2021-11-25] MEDS: SODIUM CHLORIDE 0.9% 1,000 ML IV SCH (12:41)
[2021-11-25] MEDS: LIDOCAINE PATCH 5% TOP SCH (13:02)
[2021-11-26] MEDS: SODIUM CHLORIDE FLUSH 0.9% 10 ML SYRINGE IVP SCH ×3 (01:12→16:13)
[2021-11-26] MEDS: AMIODARONE 360 MG/200 ML 200 ML IV SCH ×2 (04:32→15:22)
[2021-11-26 04:36] LABS: BASOPHILS % (AUTO) 0.4 %; EOSINOPHILS # (AUTO) 0.3 10^3/uL (0.0-0.7); EOSINOPHILS % (AUTO) 3.8 %; HCT - HEMATOCRIT 33.9 % (37.0-47.0); HGB - HEMOGLOBIN 11.2 g/dL (12.0-16.0); LYMPHOCYTES # (AUTO) 1.4 10^3/uL (1.5-3.5); LYMPHOCYTES % (AUTO) 16.6 %; MEAN CORPUSCULAR HEMOGLOBIN 32.1 pg (27.0-31.0); MEAN CORPUSCULAR VOLUME 97.1 fL (81.0-99.0); MONOCYTES # (AUTO) 0.8 10^3/uL (0.0-1.0); MONOCYTES % (AUTO) 9.5 %; NEUTROPHILS # (AUTO) 5.9 10^3/uL (1.5-6.6); NEUTROPHILS % (AUTO) 69.5 %; PLT - PLATELET COUNT 187 10^3/uL (130-450); RED BLOOD COUNT 3.49 10^6/uL (4.20-5.40); RED CELL DISTRIBUTION WIDTH 13.8 % (12.0-15.0); WHITE BLOOD COUNT 8.4 x10^3/uL (4.8-10.8)
[2021-11-26 04:45] LABS: CALCIUM 8.7 mg/dL (8.5-10.3); CREATININE 0.9 mg/dL (0.4-1.0); POTASSIUM 4.1 mmol/L (3.5-5.0)
[2021-11-26] MEDS: FUROSEMIDE 40 MG/4 ML VIAL IVP SCH (06:47)
[2021-11-26] MEDS: METOPROLOL TARTRATE 25 MG TABLET PO SCH ×4 (08:18→20:56)
[2021-11-26] MEDS: LIDOCAINE PATCH 5% TOP SCH (08:18)
[2021-11-26] MEDS: APIXABAN 5 MG TABLET PO SCH ×2 (08:19→20:55)
[2021-11-26] MEDS: CARBIDOPA/LEVODOPA 25 MG/100 MG TABLET PO SCH ×4 (08:19→20:55)
[2021-11-26] MEDS ORDERED: METOPROLOL TARTRATE 25 MG TABLET PO SCH (09:00)
--- NOTE | 2021-11-26 12:21 | PROVIDER PROGRESS NOTE ---
Subjective - Subjective Pt reports feeling: Improved (She has much less right hip pain since being started on a lidocaine patch on the buttock (after physical therapy helped diagnosed this is piriformis pain). Her shortness of breath is better, she is able to get out of bed without shortness of breath, but is still wearing supplemental oxygen.) Objective - Vital Signs/Intake & Output Reviewed Vital Signs: Yes Vital Signs: Vital Signs Temp Pulse Resp BP BP Pulse Ox O2 Flow Rate 11/26/21 12:00 111 H 21 145/87 H 99 3 11/26/21 11:00 110 H 16 127/77 99 3 11/26/21 10:00 109 H 22 110/89 H 99 3 11/26/21 09:04 91/48 L 11/26/21 09:00 36.8 C 108 H 16 91/48 L 3 Intake & Output: Intake & Output 11/23/21 11/24/21 11/25/21 11/26/21 23:59 23:59 23:59 23:59 Intake Total 5148.611 0978.083 2729.726 640 Output Total 100 2615 3400 2350 Balance 3396.237 6571.083 -670.274 -1710 - Objective General Appearance: positive: No acute distress, Alert, Other (wearing O2 per oximizer) Eyes Bilateral: positive: Normal inspection, No lid inflammation ENT: positive: No signs of dehydration Neck: positive: Nml inspection, No JVD Respiratory: positive: No respiratory distress, Other (No rales, diminished breath sounds of left base) Cardiovascular: positive: No murmur, Tachycardia Abdomen: positive: Non-tender, Nml bowel sounds, No distention Skin: positive: Warm, Dry Extremities: positive: Non-tender, No pedal edema Neurologic/Psychiatric: positive: Oriented x3 (Tremor of R hand noted, is slight) - Lab Results Fish Bones: 11/26/21 04:16 11/26/21 04:16 Other Labs: Lab Results x24hrs 11/26/21 11/26/21 11/26/21 Range/Units 04:16 04:16 04:16 WBC 8.4 (4.8-10.8) x10^3/uL RBC 3.49 L (4.20-5.40) 10^6/uL Hgb 11.2 L (12.0-16.0) g/dL Hct 33.9 L (37.0-47.0) % MCV 97.1 (81.0-99.0) fL MCH 32.1 H (27.0-31.0) pg MCHC 33.0 (32.0-36.0) g/dL RDW 13.8 (12.0-15.0) % Plt Count 187 (130-450) 10^3/uL MPV 10.0 (7.9-10.8) fL Neut # (Auto) 5.9 (1.5-6.6) 10^3/uL Lymph # (Auto) 1.4 L (1.5-3.5) 10^3/uL [place] # (Auto) 0.8 (0.0-1.0) 10^3/uL Eos # (Auto) 0.3 (0.0-0.7) 10^3/uL Baso # (Auto) 0.0 (0.0-0.1) 10^3/uL Absolute Nucleated RBC 0.00 x10^3/uL Nucleated RBC % 0.0 /100WBC Sodium 141 (135-145) mmol/L Potassium 4.1 (3.5-5.0) mmol/L Chloride 103 (101-111) mmol/L Carbon Dioxide 33 H (21-32) mmol/L Anion Gap 5.0 L (6-13) BUN 18 (6-20) mg/dL Creatinine 0.9 (0.4-1.0) mg/dL Estimated GFR (MDRD) 62 L (>89) Glucose 100 (70-100) mg/dL Calcium 8.7 (8.5-10.3) mg/dL B-Natriuretic Peptide 586 H (5-100) pg/mL 11/25/21 11/25/21 Range/Units 20:17 14:02 WBC (4.8-10.8) x10^3/uL RBC (4.20-5.40) 10^6/uL Hgb (12.0-16.0) g/dL Hct (37.0-47.0) % MCV (81.0-99.0) fL MCH (27.0-31.0) pg MCHC (32.0-36.0) g/dL RDW (12.0-15.0) % Plt Count (130-450) 10^3/uL MPV (7.9-10.8) fL Neut # (Auto) (1.5-6.6) 10^3/uL Lymph # (Auto) (1.5-3.5) 10^3/uL [place] # (Auto) (0.0-1.0) 10^3/uL Eos # (Auto) (0.0-0.7) 10^3/uL Baso # (Auto) (0.0-0.1) 10^3/uL Absolute Nucleated RBC x10^3/uL Nucleated RBC % /100WBC Sodium (135-145) mmol/L Potassium 4.5 3.9 (3.5-5.0) mmol/L Chloride (101-111) mmol/L Carbon Dioxide (21-32) mmol/L Anion Gap (6-13) BUN (6-20) mg/dL Creatinine (0.4-1.0) mg/dL Estimated GFR (MDRD) (>89) Glucose (70-100) mg/dL Calcium (8.5-10.3) mg/dL B-Natriuretic Peptide (5-100) pg/mL Assessment/Plan - Problem List (1) Acute respiratory failure with hypoxia Impression: Wheezing was audible on the H&P of the admitting Hospitalist. Her admitting chest x-ray showed interstitial changes. CT scan chest was done after admission and it was consistent with pulmonary edema and a pleural effusion. She has need ed supplemental O2 and the patient was admitted to Inpatient status from Observation status because of worsening hypoxia. We are treating the underlying pulmonary edema and no further rales or wheezing is heard Continue supplemental oxygen, tapering down to room air as tolerated, keeping sats >90-92% (2) Pleural effusion Conclusion/Plan: The Echo results and CT chest both confirm she has a significant pleural effusion on the left side. This is most likely CHF from days of having A. fib with RVR, since she complained of palpitations for 4 days before she sought medical help. She was getting Lasix IV b.i.d. and has had good diuresis. We will stop the IV Lasix after today and change to Lasix 40 mg p.o. daily starting tomorrow morning Follow I's and O's, daily weight, daily electrolytes and magnesium and replace if low (3) Atrial fibrillation with RVR Conclusion/Plan: She presented in new onset Afib, converted to normal sinus rhythm her first night. She then went back into atrial fib-flutter with RVR over her second night and has been on IV amiodarone drip Her TSH is normal. No PE was reported on CT and she had a neg Homans sign. Troponins done have R/O ACS as cause of new onset afib and Echo shows no regional wall motion abnormalities. She does not have a history of lung disease. The Echo showed that she has moderate MS and MR and a very large left atrium. This valvular heart disease is likely the cause of her Afib. Will continue the Eliquis that was started. Continue with amiodarone IV, hoping that this will converted back to sinus rhythm. Will increase beta-kendrick dose orally today for addnl heart rate control and we stopped the po Cardizem (4) Mitral stenosis and mitral regurgitation Conclusion/Plan: The Echo was done and showed that she has moderate (or more significant) MS and MR and a very large left atrium. This valvular heart disease is likely the cause of her Afib. She will need further management with cardiology as an outpatient after discharge. This was discussed with her. (5) Parkinson disease Conclusion/Plan: Marked tremors were noted on admission exam because she had not had any of her medicines for nearly a day, while in the ED. We have now resumed her home Parkinsons meds. We requested OT consult to suggest any hand devices and none are needed (6) Hx HTN (hypertension) Conclusion/Plan: At home she took atenolol to control her blood pressure and her tremors. Blood pressure here was occasionally soft, since being put on meds and from dehydration. Atenolol will be changed to metoprolol at discharge, when a good dose is determined (7) Chronic pain of right lower extremity Conclusion/Plan: She describes pain in the right buttock and has had extensive radiology eval, PT, massage therapy and chiropractic manipulation without much relief of pain. (Between this and the Parkinson's disease, it is slowing her down. She is planning on moving back home to her family in [facility] in the next few months so that if she deteriorates to needing more care, she can already be "home" in [facility], she stated). We have resumed her gabapentin. We requested PT consult to help localize the source of the pain and suggest treatment. PT saw her yesterday and a Pyriform strain was Dx and we started topical Lidocaine patch daily which has helped alot. PT also gave her names of outpt PTs that specialize in that area. (8) Cardio-Renal syndrome Conclusion/Plan: Resolved This was first felt to be from dehydration, given her exam and given her her elevated BUN/creatinine at admission. So she received 1 L fluid in the ED and another liter after admission. However, after starting Lasix, her BUN/creatinine has improved to 23/1.1. Therefore, she had Cardio-Renal syndrome with renal venous volume overload. Will continue to avoid nephrotoxins. Po Lasix will be used going forward Follow BMP daily (9) Dehydration Conclusion/Plan: Resolved with 1 day of iv fluids. Fluids were stopped when wheezing and CHF developed.
[2021-11-26] MEDS: TEMAZEPAM 15 MG CAPSULE PO PRN (22:11)
[2021-11-27] MEDS: SODIUM CHLORIDE FLUSH 0.9% 10 ML SYRINGE IVP SCH ×3 (02:21→17:26)
[2021-11-27] MEDS: AMIODARONE 360 MG/200 ML 200 ML IV SCH ×2 (03:30→20:35)
[2021-11-27 04:57] LABS: BASOPHILS % (AUTO) 0.5 %; EOSINOPHILS # (AUTO) 0.5 10^3/uL (0.0-0.7); EOSINOPHILS % (AUTO) 6.4 %; HCT - HEMATOCRIT 34.8 % (37.0-47.0); HGB - HEMOGLOBIN 11.5 g/dL (12.0-16.0); LYMPHOCYTES # (AUTO) 1.8 10^3/uL (1.5-3.5); LYMPHOCYTES % (AUTO) 22.3 %; MEAN CORPUSCULAR HEMOGLOBIN 31.6 pg (27.0-31.0); MEAN CORPUSCULAR VOLUME 95.6 fL (81.0-99.0); MEAN PLATELET VOLUME 10.2 fL (7.9-10.8); MONOCYTES # (AUTO) 0.8 10^3/uL (0.0-1.0); MONOCYTES % (AUTO) 9.3 %; NEUTROPHILS % (AUTO) 61.1 %; PLT - PLATELET COUNT 215 10^3/uL (130-450); RED BLOOD COUNT 3.64 10^6/uL (4.20-5.40); RED CELL DISTRIBUTION WIDTH 13.5 % (12.0-15.0); WHITE BLOOD COUNT 8.1 x10^3/uL (4.8-10.8)
[2021-11-27 04:58] LABS: CALCIUM, IONIZED 1.13 mmol/L (1.15-1.33); VBG PH 7.453 (7.31-7.41)
[2021-11-27 05:12] LABS: CALCIUM 8.9 mg/dL (8.5-10.3); POTASSIUM 3.8 mmol/L (3.5-5.0)
[2021-11-27] MEDS ORDERED: POTASSIUM CHLORIDE 20 MEQ TABLET PO ONE (08:00)
[2021-11-27] MEDS: LIDOCAINE PATCH 5% TOP SCH (08:40)
[2021-11-27] MEDS: CARBIDOPA/LEVODOPA 25 MG/100 MG TABLET PO SCH ×4 (08:41→20:42)
[2021-11-27] MEDS: APIXABAN 5 MG TABLET PO SCH ×2 (08:41→20:43)
[2021-11-27] MEDS: METOPROLOL TARTRATE 25 MG TABLET PO SCH ×4 (08:41→20:42)
[2021-11-27] MEDS ORDERED: FUROSEMIDE 40 MG TABLET PO SCH (09:00)
[2021-11-27] MEDS ORDERED: TEMAZEPAM 15 MG CAPSULE PO PRN (09:04)
[2021-11-27] MEDS: SODIUM CHLORIDE 0.9% 1,000 ML IV SCH (09:09)
--- NOTE | 2021-11-27 12:47 | PROVIDER PROGRESS NOTE ---
Subjective - Subjective Pt reports feeling: Improved (No SOB, feels comfortable on R.A., is frustrated that her HR will not go down) Objective - Vital Signs/Intake & Output Reviewed Vital Signs: Yes Vital Signs: Vital Signs Pulse Resp BP Pulse Ox 11/27/21 12:00 117 H 21 108/64 96 11/27/21 11:00 107 H 21 124/78 97 11/27/21 10:00 111 H 22 122/68 95 11/27/21 09:00 112 H 20 104/74 97 Intake & Output: Intake & Output 11/24/21 11/25/21 11/26/21 11/27/21 23:59 23:59 23:59 23:59 Intake Total 3973.083 2729.726 2241.087 3507.222 Output Total 2615 3400 2450 200 Balance 1358.083 -670.274 -932.301 4429.222 - Objective General Appearance: positive: No acute distress, Alert Eyes Bilateral: positive: Normal inspection, EOMI ENT: positive: ENT inspection nml, No signs of dehydration Neck: positive: Nml inspection, Thyroid nml, No JVD Respiratory: positive: No respiratory distress, Breath sounds nml Cardiovascular: positive: No murmur, Tachycardia Abdomen: positive: Non-tender, Nml bowel sounds, No distention Skin: positive: Warm, Dry Extremities: positive: Non-tender, No pedal edema Neurologic/Psychiatric: positive: Oriented x3 (Non-focal) - Lab Results Fish Bones: 11/27/21 04:23 11/27/21 04:23 Other Labs: Lab Results x24hrs 11/27/21 11/27/21 11/27/21 Range/Units 04:23 04:23 04:23 WBC 8.1 (4.8-10.8) x10^3/uL RBC 3.64 L (4.20-5.40) 10^6/uL Hgb 11.5 L (12.0-16.0) g/dL Hct 34.8 L (37.0-47.0) % MCV 95.6 (81.0-99.0) fL MCH 31.6 H (27.0-31.0) pg MCHC 33.0 (32.0-36.0) g/dL RDW 13.5 (12.0-15.0) % Plt Count 215 (130-450) 10^3/uL MPV 10.2 (7.9-10.8) fL Neut # (Auto) 5.0 (1.5-6.6) 10^3/uL Lymph # (Auto) 1.8 (1.5-3.5) 10^3/uL [place] # (Auto) 0.8 (0.0-1.0) 10^3/uL Eos # (Auto) 0.5 (0.0-0.7) 10^3/uL Baso # (Auto) 0.0 (0.0-0.1) 10^3/uL Absolute Nucleated RBC 0.00 x10^3/uL Nucleated RBC % 0.0 /100WBC VBG pH 7.453 H (7.31-7.41) Ionized Calcium 1.13 L (1.15-1.33) mmol/L Sodium 139 (135-145) mmol/L Potassium 3.8 (3.5-5.0) mmol/L Chloride 99 L (101-111) mmol/L Carbon Dioxide 32 (21-32) mmol/L Anion Gap 8.0 (6-13) BUN 20 (6-20) mg/dL Creatinine 1.0 (0.4-1.0) mg/dL Estimated GFR (MDRD) 55 L (>89) Glucose 94 (70-100) mg/dL Calcium 8.9 (8.5-10.3) mg/dL Phosphorus 3.0 (2.5-4.6) mg/dL Magnesium 2.0 (1.7-2.8) mg/dL Assessment/Plan - Problem List (1) Atrial fibrillation with RVR Impression: She presented in new onset Afib, converted to normal sinus rhythm her first night. She then went back into atrial fib-flutter with RVR over her second night and has been in Afib since then, HR has not dropped below 100 for several days Her TSH is normal. No PE was reported on CT and she had a neg Homans sign. Troponins done have R/O ACS as cause of new onset afib and Echo shows no regional wall motion abnormalities. She does not have a history of lung disease. The Echo showed that she has moderate MS and MR and a very large left atrium. This valvular heart disease is likely the cause of her Afib. Will continue the Eliquis that was started. She was first put on IV Cardizem drip for rate control. This did convert her to sinus rhythm. She then went back into atrial fib-flutter with RVR over her second night and has been in Afib since then, HR has not dropped below 100 for several days. We had her on amiodarone IV for 3 days with no conversion to NSR. Will stop Amio after today. Will increase beta-kendrick dose again for addnl heart rate control Will resume the po Cardizem as well (2) Pleural effusion Conclusion/Plan: The Echo results and CT chest both confirm she has a significant pleural effusion on the left side. This is most likely CHF from days of having A. fib with RVR, since she complained of palpitations for 4 days before she sought medical help. She was getting Lasix IV, and now po Lasix, and has had good diuresis. Follow I's and O's, daily weight, daily electrolytes and magnesium and replace if low (3) Mitral stenosis and mitral regurgitation Conclusion/Plan: The Echo was done and showed that she has moderate (or more significant) MS and MR and a very large left atrium. This valvular heart disease is likely the cause of her Afib. She will need further management with cardiology as an outpatient after discharge. This was discussed with her. (4) Parkinson disease Conclusion/Plan: Marked tremors were noted on admission exam because she had not had any of her medicines for nearly a day, while in the ED. We have now resumed her home Parkinsons meds. We requested OT consult to suggest any hand devices and none are needed (5) Hx HTN (hypertension) Conclusion/Plan: At home she took atenolol to control her blood pressure and her tremors. Blood pressure here was occasionally soft, since being put on meds and from dehydration. Atenolol will be changed to metoprolol at discharge, when a good dose is determined (6) Chronic pain of right lower extremity Conclusion/Plan: She describes pain in the right buttock and has had extensive radiology eval, PT, massage therapy and chiropractic manipulation without much relief of pain. (Between this and the Parkinson's disease, it is slowing her down. She is planning on moving back home to her family in [facility] in the next few months so that if she deteriorates to needing more care, she can already be "home" in [facility], she stated). We have resumed her gabapentin. We requested PT consult to help localize the source of the pain and suggest treatment. PT saw her yesterday and a Pyriform strain was Dx and we started topical Lidocaine patch daily which has helped alot. PT also gave her names of outpt PTs that specialize in that area. (7) Cardio-Renal syndrome Conclusion/Plan: Resolved This was first felt to be from dehydration, given her exam and given her her elevated BUN/creatinine at admission. So she received 1 L fluid in the ED and another liter after admission. However, after starting Lasix, her BUN/creatinine has improved to 23/1.1. Therefore, she had Cardio-Renal syndrome with renal venous volume overload. Will continue to avoid nephrotoxins. Po Lasix will be used going forward Follow BMP daily (9) Dehydration Conclusion/Plan: Resolved with 1 day of iv fluids. Fluids were stopped when wheezing and CHF developed. (10) Acute respiratory failure with hypoxia Impression: Resolved, she is breathing room air as of today Wheezing was audible on the H&P of the admitting Hospitalist. Her admitting chest x-ray showed interstitial changes. CT scan chest was done after admission and it was consistent with pulmonary edema and a pleural effusion. She needed supplemental O2 and the patient was admitted to Inpatient status from Observation status because of her worsening hypoxia. We are treating the underlying pulmonary edema and no further rales or wheezing is heard On the day of discharge will obtain exercise oximetry test to see if she needs home O2 at discharge
[2021-11-27] MEDS: diltiaZEM 30 MG TABLET PO SCH ×2 (18:40→23:45)
[2021-11-28 04:50] LABS: BASOPHILS # (AUTO) 0.1 10^3/uL (0.0-0.1); BASOPHILS % (AUTO) 0.6 %; CALCIUM, IONIZED 1.16 mmol/L (1.15-1.33); EOSINOPHILS # (AUTO) 0.7 10^3/uL (0.0-0.7); EOSINOPHILS % (AUTO) 8.4 %; HCT - HEMATOCRIT 35.6 % (37.0-47.0); HGB - HEMOGLOBIN 11.7 g/dL (12.0-16.0); LYMPHOCYTES # (AUTO) 1.7 10^3/uL (1.5-3.5); LYMPHOCYTES % (AUTO) 19.5 %; MEAN CORPUSCULAR HEMOGLOBIN 31.1 pg (27.0-31.0); MEAN CORPUSCULAR HGB CONC 32.9 g/dL (32.0-36.0); MEAN CORPUSCULAR VOLUME 94.7 fL (81.0-99.0); MEAN PLATELET VOLUME 9.9 fL (7.9-10.8); MONOCYTES # (AUTO) 0.7 10^3/uL (0.0-1.0); MONOCYTES % (AUTO) 8.5 %; NEUTROPHILS # (AUTO) 5.3 10^3/uL (1.5-6.6); NEUTROPHILS % (AUTO) 62.9 %; PLT - PLATELET COUNT 224 10^3/uL (130-450); RED BLOOD COUNT 3.76 10^6/uL (4.20-5.40); RED CELL DISTRIBUTION WIDTH 13.3 % (12.0-15.0); VBG PH 7.478 (7.31-7.41); WHITE BLOOD COUNT 8.4 x10^3/uL (4.8-10.8)
[2021-11-28 04:58] LABS: PHOSPHORUS 3.3 mg/dL (2.5-4.6); POTASSIUM 3.8 mmol/L (3.5-5.0)
[2021-11-28] MEDS ORDERED: POTASSIUM CHLORIDE 20 MEQ TABLET PO ONE (06:00)
[2021-11-28] MEDS: SODIUM CHLORIDE FLUSH 0.9% 10 ML SYRINGE IVP SCH ×3 (06:17→17:53)
[2021-11-28] MEDS: diltiaZEM 30 MG TABLET PO SCH (06:18)
--- NOTE | 2021-11-28 08:48 | PROVIDER PROGRESS NOTE ---
Subjective - Subjective Pt reports feeling: Improved Subjective: walking to bathroom and in room, no SOB Objective - Vital Signs/Intake & Output Reviewed Vital Signs: Yes Vital Signs: Vital Signs Temp Pulse Resp BP BP Pulse Ox 11/28/21 08:00 36.9 C 113 H 25 H 140/97 H 93 11/28/21 07:02 112 H 18 127/95 H 92 11/28/21 06:18 128/89 H 11/28/21 06:10 117 H 20 128/89 H 90 L 11/28/21 05:34 98.3 C H 11/28/21 05:00 110 H 17 121/87 H 91 L Intake & Output: Intake & Output 11/25/21 11/26/21 11/27/21 11/28/21 23:59 23:59 23:59 23:59 Intake Total 2729.726 8298.836 0119.665 Output Total 3400 2450 750 550 Balance -670.274 -045.266 8332.665 -550 - Objective General Appearance: positive: No acute distress, Alert Eyes Bilateral: positive: Normal inspection, EOMI ENT: positive: ENT inspection nml, No signs of dehydration Neck: positive: Nml inspection, No JVD Respiratory: positive: No respiratory distress Cardiovascular: positive: Tachycardia Abdomen: positive: Non-tender, Nml bowel sounds, No distention Skin: positive: Warm, Dry Extremities: positive: No pedal edema Neurologic/Psychiatric: positive: Oriented x3 (Non-focal), Other (Fine tremor of arms, legs and voice) - Lab Results Fish Bones: 11/28/21 04:27 11/28/21 04:27 Other Labs: Lab Results x24hrs 11/28/21 11/28/21 11/28/21 Range/Units 04:27 04:27 04:27 WBC 8.4 (4.8-10.8) x10^3/uL RBC 3.76 L (4.20-5.40) 10^6/uL Hgb 11.7 L (12.0-16.0) g/dL Hct 35.6 L (37.0-47.0) % MCV 94.7 (81.0-99.0) fL MCH 31.1 H (27.0-31.0) pg MCHC 32.9 (32.0-36.0) g/dL RDW 13.3 (12.0-15.0) % Plt Count 224 (130-450) 10^3/uL MPV 9.9 (7.9-10.8) fL Neut # (Auto) 5.3 (1.5-6.6) 10^3/uL Lymph # (Auto) 1.7 (1.5-3.5) 10^3/uL [place] # (Auto) 0.7 (0.0-1.0) 10^3/uL Eos # (Auto) 0.7 (0.0-0.7) 10^3/uL Baso # (Auto) 0.1 (0.0-0.1) 10^3/uL Absolute Nucleated RBC 0.00 x10^3/uL Nucleated RBC % 0.0 /100WBC VBG pH 7.478 H (7.31-7.41) Ionized Calcium 1.16 (1.15-1.33) mmol/L Sodium 138 (135-145) mmol/L Potassium 3.8 (3.5-5.0) mmol/L Chloride 99 L (101-111) mmol/L Carbon Dioxide 31 (21-32) mmol/L Anion Gap 8.0 (6-13) BUN 23 H (6-20) mg/dL Creatinine 1.0 (0.4-1.0) mg/dL Estimated GFR (MDRD) 55 L (>89) Glucose 152 H (70-100) mg/dL Calcium 9.0 (8.5-10.3) mg/dL Phosphorus 3.3 (2.5-4.6) mg/dL Magnesium 2.0 (1.7-2.8) mg/dL Assessment/Plan - Problem List (1) Atrial fibrillation with RVR Impression: She presented in new onset Afib, converted to normal sinus rhythm her first night. She then went back into atrial fib-flutter with RVR over her second night and has been in Afib ever since then, and her HR has not been below 100 until this evening, when HR 95-99 Her TSH is normal. No PE was reported on CT and she had a neg Homans sign. Troponins done have R/O ACS as cause of new onset afib and Echo shows no regional wall motion abnormalities. She does not have a history of lung disease. The Echo showed that she has moderate or worse MS and MR and a very large left atrium. This valvular heart disease is likely the cause of her Afib. Will continue the Eliquis that was started. She was first put on IV Cardizem drip for rate control. This did convert her to sinus rhythm. She then went back into atrial fib-flutter with RVR over her second night We had her on amiodarone IV for 3 days with no conversion to NSR and HR did not decrease below 100. We stopped Amio 11/27. We have increased beta-kendrick daily for better heart rate control, since BP could tolerate it. We resumed po Cardizem and have also increase that dose She can be transferred out of ICU, now that HR is controlled below 100. We will change her 4 times daily Cardizem to Cardizem CD at at bedtime. We will change her metoprolol 4 times daily to Toprol-XL every morning. Will continue to monitor on telemetry to see if these 2 meds give adequate rate control. If she gets hypotensive but rate is not controlled, she will have to be transferred to a facilty with higher level of care, for management by an Senior Materials Scientist Dental Detail Representative for Afib ablation. (2) Pleural effusion Conclusion/Plan: The Echo results and CT chest both confirm she has a significant pleural effusion on the left side. This is most likely CHF from days of having A. fib w ith RVR, since she complained of palpitations for 4 days before she sought medical help. She was getting Lasix IV, and now po Lasix, and has had good diuresis, and her suppl O2 was able to be weaned to off Following I's and O's, daily weight, daily electrolytes and magnesium and replace if low Will decrease the Lasix dose now that BUN slightly up today (3) Mitral stenosis and mitral regurgitation Conclusion/Plan: The Echo was done and showed that she has moderate (or more significant) MS and MR and a very large left atrium. This valvular heart disease is likely the cause of her Afib. She will need further management with cardiology as an outpatient after discharge. This has been discussed with her. (4) Parkinson disease Conclusion/Plan: Marked tremors were noted on admission exam because she had not had any of her medicines for nearly a day, while in the ED. We have now resumed her home Parkinsons meds. We requested OT consult to suggest any hand devices and none are needed (5) Hx HTN (hypertension) Conclusion/Plan: At home she took atenolol to control her blood pressure and her tremors. Blood pressure here was occasionally soft, since being put on meds and initially from dehydration. Atenolol will be changed to metoprolol at discharge, when a good dose is determined (6) Chronic pain of right lower extremity Conclusion/Plan: She describes pain in the right buttock and has had extensive radiology eval, PT, massage therapy and chiropractic manipulation without much relief of pain. (Between this and the Parkinson's disease, it is slowing her down. She is planning on moving back home to her family in [facility] in the next few months so that if she deteriorates to needing more care, she can already be "home" in [facility], she stated). We have resumed her gabapentin. We requested PT consult to help localize the source of the pain and suggest treatment. PT saw her yesterday and a Pyriform strain was Dx and we started topical Lidocaine patch daily, applied on the R buttock, which has helped alot. PT also gave her names of outpt PTs that specialize in that area. (7) Cardio-Renal syndrome Conclusion/Plan: Resolved This was first felt to be from dehydration, given her exam and given her her elevated BUN/creatinine at admission. So she received 1 L fluid in the ED and another liter after admission. However, after starting Lasix, her BUN/creatinine has improved to 23/1.1. Therefore, she had Cardio-Renal syndrome with renal venous volume overload. Will continue to avoid nephrotoxins. Po Lasix will be used going forward Follow BMP daily (9) Dehydration Conclusion/Plan: Resolved with 1 day of iv fluids. Fluids were stopped when wheezing and CHF developed. (10) Acute respiratory failure with hypoxia Impression: Resolved, she is breathing room air as of 11/27 Wheezing was audible on the H&P of the admitting Hospitalist. Her admitting chest x-ray showed interstitial changes. CT scan chest was done after admission and it was consistent with pulmonary edema and a pleural effusion. She needed supplemental O2 and the patient was admitted to Inpatient status from Observation status because of her worsening hypoxia. We treated the underlying pulmonary edema and no further rales or wheezing are heard On the day of discharge will obtain exercise oximetry test to see if she needs home O2 at discharge, if she is [facility] home
[2021-11-28] MEDS: FUROSEMIDE 40 MG TABLET PO SCH (09:10)
[2021-11-28] MEDS: OMEGA-3 ACID ETHYL ESTERS 1 GM CAPSULE PO SCH (09:12)
[2021-11-28] MEDS: METOPROLOL TARTRATE 25 MG TABLET PO SCH ×4 (09:12→21:35)
[2021-11-28] MEDS: CARBIDOPA/LEVODOPA 25 MG/100 MG TABLET PO SCH ×4 (09:12→21:35)
[2021-11-28] MEDS: APIXABAN 5 MG TABLET PO SCH ×2 (09:13→21:35)
[2021-11-28] MEDS: CHOLECALCIFEROL 25 MCG TABLET PO SCH (09:14)
[2021-11-28] MEDS: CALCIUM CARB (OYSTER SHELL) 500 MG TABLET PO SCH (09:14)
[2021-11-28] MEDS: LIDOCAINE PATCH 5% TOP SCH (09:16)
[2021-11-28] MEDS ORDERED: diltiaZEM 30 MG TABLET PO SCH (12:00)
[2021-11-28] MEDS: SODIUM CHLORIDE 0.9% 1,000 ML IV SCH (13:28)
[2021-11-28] MEDS: diltiaZEM CD 240 MG CAPSULE PO SCH (19:29)
[2021-11-28] MEDS: ATORVASTATIN 10 MG TABLET PO SCH (21:35)
[2021-11-29] MEDS: SODIUM CHLORIDE FLUSH 0.9% 10 ML SYRINGE IVP SCH ×4 (01:52→23:59)
[2021-11-29] MEDS: ZOLPIDEM 5 MG TABLET PO PRN ×2 (01:52→23:58)
[2021-11-29 05:05] LABS: BASOPHILS % (AUTO) 0.5 %; EOSINOPHILS # (AUTO) 0.7 10^3/uL (0.0-0.7); EOSINOPHILS % (AUTO) 9.3 %; HCT - HEMATOCRIT 35.1 % (37.0-47.0); HGB - HEMOGLOBIN 11.6 g/dL (12.0-16.0); LYMPHOCYTES % (AUTO) 26.3 %; MEAN CORPUSCULAR HEMOGLOBIN 31.8 pg (27.0-31.0); MEAN CORPUSCULAR VOLUME 96.2 fL (81.0-99.0); MEAN PLATELET VOLUME 9.7 fL (7.9-10.8); MONOCYTES # (AUTO) 0.7 10^3/uL (0.0-1.0); MONOCYTES % (AUTO) 8.5 %; NEUTROPHILS # (AUTO) 4.2 10^3/uL (1.5-6.6); NEUTROPHILS % (AUTO) 55.1 %; PLT - PLATELET COUNT 233 10^3/uL (130-450); RED BLOOD COUNT 3.65 10^6/uL (4.20-5.40); RED CELL DISTRIBUTION WIDTH 13.2 % (12.0-15.0); WHITE BLOOD COUNT 7.7 x10^3/uL (4.8-10.8)
[2021-11-29 05:13] LABS: CALCIUM 8.8 mg/dL (8.5-10.3); MAGNESIUM 1.9 mg/dL (1.7-2.8)
[2021-11-29] MEDS: LIDOCAINE PATCH 5% TOP SCH (08:57)
[2021-11-29] MEDS: CHOLECALCIFEROL 25 MCG TABLET PO SCH (08:57)
[2021-11-29] MEDS: APIXABAN 5 MG TABLET PO SCH ×2 (08:58→21:20)
[2021-11-29] MEDS: CARBIDOPA/LEVODOPA 25 MG/100 MG TABLET PO SCH ×4 (08:58→21:20)
[2021-11-29] MEDS: FUROSEMIDE 40 MG TABLET PO SCH ×2 (08:58→13:37)
[2021-11-29] MEDS: CALCIUM CARB (OYSTER SHELL) 500 MG TABLET PO SCH (08:58)
[2021-11-29] MEDS: OMEGA-3 ACID ETHYL ESTERS 1 GM CAPSULE PO SCH (08:58)
[2021-11-29] MEDS: METOPROLOL SUCCINATE 50 MG TABLET PO SCH (08:59)
--- NOTE | 2021-11-29 11:51 | PROVIDER PROGRESS NOTE ---
Assessment/Plan - Problem List (1) Atrial fibrillation with RVR Assessment/Plan: She presented in new onset Afib, converted to normal sinus rhythm her first night. She then went back into atrial fib-flutter with RVR over her second night and has been in Afib ever since then, and her HR has not been below 100 until yesterday Her TSH is normal. No PE was reported on CT and she had a neg Homans sign. Tropo nins done have R/O ACS as cause of new onset afib and Echo shows no regional wall motion abnormalities. She does not have a history of lung disease. The Echo showed that she has moderate or worse MS and MR and a very large left atrium. This valvular heart disease is likely the cause of her Afib. Will continue the Eliquis that was started. We are changing her 4 times daily Cardizem to Cardizem CD and her metoprolol 4 times daily to Toprol-XL. Will continue to monitor on telemetry to see if these 2 meds give adequate rate control, and check HR with ambulation today If she gets hypotensive but rate is not controlled, she will have to be transferred to a facilty with higher level of care, for management by an Editorial Clerk Mailing Machine Operator for Afib ablation. (2) Acute respiratory failure with hypoxia Impression: Recurred, she is requiring suppl O2 again and exam today shows rales. Will increase her po Lasix to 0800,1400 today On the day of discharge, will obtain exercise oximetry test to see if she needs home O2 at discharge, if she is [facility] home (3) CHF Conclusion/Plan: The Echo results and CT chest both confirm she had a significant pleural effusion on the left side. This was most likely due to CHF from days of having A. fib with RVR, since she complained of palpitations for 4 days before she sought medical help. She was getting Lasix IV, and now po Lasix. Her exam today shows rales, so we will increase her po Lasix to 0800,1400 today Following I's and O's, daily weight, daily electrolytes and magnesium and replace if low (4) Mitral stenosis and mitral regurgitation Conclusion/Plan: The Echo was done and showed that she has moderate (or more significant) MS and MR and a very large left atrium. This valvular heart disease is likely the cause of her Afib. She will need further management with cardiology as an outpatient after discharge. This has been discussed with her. (5) Parkinson disease Conclusion/Plan: Marked tremors were noted on admission exam because she had not had any of her medicines for nearly a day, while in the ED. We have now resumed her home Parkinsons meds. We requested OT consult to suggest any hand devices and none are needed (6) Hx HTN (hypertension) Conclusion/Plan: At home she took atenolol to control her blood pressure and her tremors. Blood pressure here was occasionally soft, since being put on meds and initially from dehydration. Atenolol will be changed to metoprolol at discharge, when a good dose is determined (7) Chronic pain of right lower extremity Conclusion/Plan: She describes pain in the right buttock and has had extensive radiology eval, PT, massage therapy and chiropractic manipulation without much relief of pain. (Between this and the Parkinson's disease, it is slowing her down. She is planning on moving back home to her family in [facility] in the next few months so that if she deteriorates to needing more care, she can already be "home" in [facility], she stated). We have resumed her gabapentin. We requested PT consult to help localize the source of the pain and suggest treatment. PT saw her yesterday and a Pyriform strain was Dx and we started topical Lidocaine patch daily, applied on the R buttock, which has helped alot. PT also gave her names of outpt PTs that specialize in that area. (8) Cardio-Renal syndrome Conclusion/Plan: Resolved This was first felt to be from dehydration, given her exam and given her her elevated BUN/creatinine at admission. So she received 1 L fluid in the ED and another liter after admission. However, after starting Lasix, her BUN/creatinine has improved to 23/1.1. Therefore, she had Cardio-Renal syndrome with renal venous volume overload. Will continue to avoid nephrotoxins. Po Lasix will be used going forward Follow BMP daily (9) Dehydration Conclusion/Plan: Resolved with 1 day of iv fluids. Fluids were stopped when wheezing and CHF developed. - Current Meds Current Meds: Current Medications Generic Name Dose Route Start Last Admin Trade Name Freq PRN Reason Stop Dose Admin Apixaban 5 mg 11/23/21 15:05 11/29/21 08:58 Apixaban 5 Mg Tablet PO 5 mg BID POLLY Administration Atorvastatin Calcium 20 mg 11/28/21 21:00 11/28/21 21:35 Atorvastatin 10 Mg Tablet PO 20 mg QPM POLLY Administration Calcium Carbonate/Glycine 500 mg 11/28/21 09:00 11/29/21 08:58 Calcium Carb (Oyster Shell) 500 Mg Tablet PO 500 mg DAILY POLLY Administration Carbidopa/Levodopa 1 tab 11/23/21 17:00 11/29/21 08:58 Carbidopa/Levodopa 25 Mg/100 Mg Tablet PO 1 tab QID POLLY Administration Cholecalciferol 50 mcg 11/28/21 09:00 11/29/21 08:57 Cholecalciferol 25 Mcg Tablet PO 50 mcg DAILY POLLY Administration Diltiazem HCl 240 mg 11/28/21 19:00 11/28/21 19:29 Diltiazem Cd 240 Mg Capsule PO 240 mg 1900 POLLY Administration Levalbuterol HCl 1.25 mg 11/23/21 16:57 11/24/21 14:49 Levalbuterol 1.25 Mg/3 Ml Neb INH 1.25 mg Q4H PRN Administration Shortness of Air/Wheezing Lidocaine 1 patch 11/25/21 12:00 11/29/21 08:57 Lidocaine Patch 5% TOP 1 patch DAILY POLLY Administration Metoprolol Succinate 150 mg 11/29/21 08:00 11/29/21 08:59 Metoprolol Succinate 50 Mg Tablet PO 150 mg DAILYWM POLLY Administration Hwmmp-7-[id number] Ethyl Esters 1 gm 11/28/21 09:00 11/29/21 08:58 [place]-3 Acid Ethyl Esters 1 Gm Capsule PO 1 gm DAILY POLLY Administration Oxycodone HCl 5 mg 11/23/21 15:03 11/25/21 04:48 Oxycodone 5 Mg Tablet PO 5 mg Q4HR PRN Administration Pain 5 to 7 Sodium Chloride 10 ml 11/23/21 17:00 11/29/21 01:52 Sodium Chloride Flush 0.9% 10 Ml Syringe IVP 10 ml 0100,0900,1700 POLLY Administration Zolpidem Tartrate 5 mg 11/28/21 12:13 11/29/21 01:52 Zolpidem 5 Mg Tablet PO 5 mg QPM PRN Administration Insomnia - Lab Result Fish Bone Diagrams: 11/29/21 04:43 11/29/21 04:43 - Additional Planning My Orders: My Active Orders 11/28/21 12:13 Zolpidem [Ambien] 5 mg PO QPM PRN 11/28/21 19:00 diltiaZEM CD [Cardizem Cd] 240 mg PO 1900 11/28/21 21:00 Atorvastatin [Lipitor] 20 mg PO QPM 11/29/21 08:00 Metoprolol Succinate [Toprol Xl] 150 mg PO DAILYWM 11/29/21 08:45 Miscellaenous Nursing Order [RC] QSHIFT 11/29/21 14:00 Furosemide [Lasix] 20 mg PO BIDDIURETIC 11/30/21 05:00 BMP - BASIC METABOLIC PANEL [CHEM] DAILYLAB CBC - COMP BLD CT W/AUTO DIFF [HEME] DAILYLAB 12/01/21 05:00 BMP - BASIC METABOLIC PANEL [CHEM] DAILYLAB CBC - COMP BLD CT W/AUTO DIFF [HEME] DAILYLAB Subjective - Subjective Patient Reports: Shortness of Breath Nursing Reports: Other (Suppl O2 restarted this a.m.) Objective Vital Signs: Vital Signs - 24 hr 11/28/21 11/28/21 11/28/21 12:00 12:13 13:00 Temperature 36.6 C Heart Rate [ Brachial] Heart Rate [ 112 H 108 H Monitoring electrodes] Respiratory 18 Rate Blood Pressure 138/82 H Blood Pressure 138/82 H [Right Brachial artery] O2 Saturation 94 96 If not protocol : Oxygen Flow, liters/minute 11/28/21 11/28/21 11/28/21 13:29 14:00 15:00 Temperature Heart Rate [ Brachial] Heart Rate [ 103 H 98 Monitoring electrodes] Respiratory 20 Rate Blood Pressure 138/82 H Blood Pressure 109/81 H 105/67 [Right Brachial artery] O2 Saturation 95 92 If not protocol : Oxygen Flow, liters/minute 11/28/21 11/28/21 11/28/21 16:00 17:00 17:52 Temperature Heart Rate [ Brachial] Heart Rate [ 98 106 H Monitoring electrodes] Respiratory 22 20 Rate Blood Pressure 129/77 Blood Pressure 111/83 H 129/77 [Right Brachial artery] O2 Saturation 92 95 If not protocol : Oxygen Flow, liters/minute 11/28/21 11/28/21 11/28/21 18:00 20:25 21:35 Temperature 36.8 C Heart Rate [ 112 H Brachial] Heart Rate [ 112 H Monitoring electrodes] Respiratory 18 24 Rate Blood Pressure 137/90 H Blood Pressure 135/79 H 137/94 H [Right Brachial artery] O2 Saturation 97 94 If not protocol : Oxygen Flow, liters/minute 11/28/21 11/29/21 11/29/21 23:34 05:20 07:40 Temperature 36.6 C 36.7 C 36.8 C Heart Rate [ 80 Brachial] Heart Rate [ 109 H 107 H Monitoring electrodes] Respiratory 18 18 18 Rate Blood Pressure Blood Pressure 124/85 H 125/75 119/86 H [Right Brachial artery] O2 Saturation 93 92 93 If not protocol 2 : Oxygen Flow, liters/minute 11/29/21 07:51 Temperature Heart Rate [ Brachial] Heart Rate [ Monitoring electrodes] Respiratory Rate Blood Pressure Blood Pressure [Right Brachial artery] O2 Saturation If not protocol 2 : Oxygen Flow, liters/minute Oxygen O2 Source Nasal cannula I&O (Last 24 Hrs): Intake and Output Totals x24h 11/27/21 11/28/21 11/29/21 23:59 23:59 23:59 Intake Total 2176.665 2209 760 Output Total 750 1525 Balance 1426.665 684 760 General: Alert, Oriented x3 HEENT: Mucous membr. moist/pink, Other (wesring O2 per n.c.) Neck: Supple, No JVD Neuro: Alert, Non Focal Cardiovascular: Other (Tachy, distant heart sounds) Respiratory: Rales (bilat 1/2 up posteriorly) Abdomen: Normal bowel sounds, Soft Extremities: No edema - Results Results: Laboratory Results WBC 7.7 x10^3/uL (4.8-10.8) 11/29/21 04:43 RBC 3.65 10^6/uL (4.20-5.40) L 11/29/21 04:43 Hgb 11.6 g/dL (12.0-16.0) L 11/29/21 04:43 Hct 35.1 % (37.0-47.0) L 11/29/21 04:43 MCV 96.2 fL (81.0-99.0) 11/29/21 04:43 MCH 31.8 pg (27.0-31.0) H 11/29/21 04:43 MCHC 33.0 g/dL (32.0-36.0) 11/29/21 04:43 RDW 13.2 % (12.0-15.0) 11/29/21 04:43 Plt Count 233 10^3/uL (130-450) 11/29/21 04:43 MPV 9.7 fL (7.9-10.8) 11/29/21 04:43 Neut # (Auto) 4.2 10^3/uL (1.5-6.6) 11/29/21 04:43 Lymph # (Auto) 2.0 10^3/uL (1.5-3.5) 11/29/21 04:43 [place] # (Auto) 0.7 10^3/uL (0.0-1.0) 11/29/21 04:43 Eos # (Auto) 0.7 10^3/uL (0.0-0.7) 11/29/21 04:43 Baso # (Auto) 0.0 10^3/uL (0.0-0.1) 11/29/21 04:43 Absolute Nucleated RBC 0.00 x10^3/uL 11/29/21 04:43 Nucleated RBC % 0.0 /100WBC 11/29/21 04:43 PT 11.7 secs (9.9-12.6) 11/23/21 10:05 INR 1.0 (0.8-1.2) 11/23/21 10:05 D-Dimer > 1050.0 ng/mL (200.0-255.0) H 11/23/21 15:15 VBG pH 7.478 (7.31-7.41) H 11/28/21 04:27 Ionized Calcium 1.16 mmol/L (1.15-1.33) 11/28/21 04:27 Sodium 138 mmol/L (135-145) 11/29/21 04:43 Potassium 4.0 mmol/L (3.5-5.0) 11/29/21 04:43 Chloride 98 mmol/L (101-111) L 11/29/21 04:43 Carbon Dioxide 32 mmol/L (21-32) 11/29/21 04:43 Anion Gap 8.0 (6-13) 11/29/21 04:43 BUN 21 mg/dL (6-20) H 11/29/21 04:43 Creatinine 1.0 mg/dL (0.4-1.0) 11/29/21 04:43 Estimated GFR (MDRD) 55 (>89) L 11/29/21 04:43 Glucose 95 mg/dL (70-100) 11/29/21 04:43 Calcium 8.8 mg/dL (8.5-10.3) 11/29/21 04:43 Phosphorus 3.3 mg/dL (2.5-4.6) 11/28/21 04:27 Magnesium 1.9 mg/dL (1.7-2.8) 11/29/21 04:43 Total Bilirubin 0.7 mg/dL (0.2-1.0) 11/23/21 09:50 AST 32 IU/L (10-42) 11/23/21 09:50 ALT < 10 IU/L (10-60) L 11/23/21 09:50 Alkaline Phosphatase 126 IU/L (42-121) H 11/23/21 09:50 Troponin I High Sens 16.5 ng/L (2.3-14.8) H* 11/24/21 05:14 B-Natriuretic Peptide 586 pg/mL (5-100) H 11/26/21 04:16 Total Protein 6.4 g/dL (6.7-8.2) L 11/23/21 09:50 Albumin 3.3 g/dL (3.2-5.5) 11/23/21 09:50 Globulin 3.1 g/dL (2.1-4.2) 11/23/21 09:50 Albumin/Globulin Ratio 1.1 (1.0-2.2) 11/23/21 09:50 Lipase 27 U/L (22-51) 11/23/21 09:50 TSH 1.12 uIU/mL (0.34-5.60) 11/23/21 09:50 Nasal Screen MRSA (PCR) NEGATIVE (NEGATIVE) 11/23/21 15:49 SARS-CoV-2 (PCR) NOT DETECTED 11/23/21 10:10 - Procedures Procedures: Procedures EXCISION OF CECUM, ENDO (11/07/18) EXCISION OF SIGMOID COLON, ENDO (11/07/18)
[2021-11-29] MEDS: diltiaZEM CD 240 MG CAPSULE PO SCH (19:09)
[2021-11-29] MEDS: ATORVASTATIN 10 MG TABLET PO SCH (21:20)
[2021-11-30] MEDS: FUROSEMIDE 40 MG TABLET PO SCH (05:56)
[2021-11-30 05:59] LABS: BASOPHILS # (AUTO) 0.1 10^3/uL (0.0-0.1); BASOPHILS % (AUTO) 0.7 %; EOSINOPHILS # (AUTO) 0.6 10^3/uL (0.0-0.7); EOSINOPHILS % (AUTO) 8.9 %; HCT - HEMATOCRIT 37.5 % (37.0-47.0); HGB - HEMOGLOBIN 12.3 g/dL (12.0-16.0); LYMPHOCYTES # (AUTO) 1.6 10^3/uL (1.5-3.5); LYMPHOCYTES % (AUTO) 23.7 %; MEAN CORPUSCULAR HEMOGLOBIN 31.1 pg (27.0-31.0); MEAN CORPUSCULAR HGB CONC 32.8 g/dL (32.0-36.0); MEAN CORPUSCULAR VOLUME 94.9 fL (81.0-99.0); MEAN PLATELET VOLUME 9.8 fL (7.9-10.8); MONOCYTES # (AUTO) 0.7 10^3/uL (0.0-1.0); MONOCYTES % (AUTO) 9.5 %; NEUTROPHILS # (AUTO) 3.9 10^3/uL (1.5-6.6); NEUTROPHILS % (AUTO) 56.9 %; PLT - PLATELET COUNT 255 10^3/uL (130-450); RED BLOOD COUNT 3.95 10^6/uL (4.20-5.40); RED CELL DISTRIBUTION WIDTH 13.1 % (12.0-15.0); WHITE BLOOD COUNT 6.9 x10^3/uL (4.8-10.8)
[2021-11-30 06:09] LABS: POTASSIUM 3.8 mmol/L (3.5-5.0)
[2021-11-30] MEDS: APIXABAN 5 MG TABLET PO SCH (08:16)
[2021-11-30] MEDS: CHOLECALCIFEROL 25 MCG TABLET PO SCH (08:16)
[2021-11-30] MEDS: OMEGA-3 ACID ETHYL ESTERS 1 GM CAPSULE PO SCH (08:16)
[2021-11-30] MEDS: SODIUM CHLORIDE FLUSH 0.9% 10 ML SYRINGE IVP SCH (08:16)
[2021-11-30] MEDS: CALCIUM CARB (OYSTER SHELL) 500 MG TABLET PO SCH (08:16)
[2021-11-30] MEDS: CARBIDOPA/LEVODOPA 25 MG/100 MG TABLET PO SCH (08:16)
[2021-11-30] MEDS: LIDOCAINE PATCH 5% TOP SCH (08:17)
[2021-11-30] MEDS: METOPROLOL SUCCINATE 50 MG TABLET PO SCH (08:17)
--- NOTE | 2021-11-30 09:30 | Discharge Plan ---
Discharge Plan Problem Reviewed?: Yes Disposition: Home, Self Care Condition: Fair Prescriptions: diltiaZEM CD [Cardizem Cd] 240 mg PO 1900 #30 cap Apixaban [Eliquis] 5 mg PO BID #60 tablet Furosemide [Lasix] 20 mg PO BID #60 tablet Lidocaine Patch 5% [Lidoderm Patch] 1 patch TOP DAILY #30 patch Metoprolol Succinate [Toprol Xl] 150 mg PO DAILYWM #90 tab Diet: Low Sodium Activity Restrictions: Activity as Tolerated Shower Restrictions: No Driving Restrictions: No Instruction Topics: Apixaban oral tablets, Metoprolol tablets, Diltiazem ta blets, Furosemide tablets, Atrial Fibrillation Health Concerns: You were admitted to the hospital to treat fluid overload in your lungs which was caused by a very rapid heart rate (A. fib). You needed supplemental oxygen and IV diuretics and you required ICU care for several days. The heart rate has been difficult to control to bring down. You are on new medications for this now. This type of heart rhythm can cause strokes, therefore you have been started on blood thinners. You are being discharged home today with several new medications prescribed. The new prescriptions have been electronically sent to your [facility] pharmacy in [place]. Stop taking the Atenolol, but you may resume all your other pre-hospital medications. You do not need supplemental Potassium or Magnesium at this point. You were tested to see if you need a new order for home oxygen, and you do not, your oxygen levels are stable. You need to be seen by a Engine Mechanic within the next month for further management. The openings with Engine Mechanic Dr. Bora Hylton at the [facility] here in the hospital, are all the way out in Mar 2022, or he has openings at his [place] clinic in a month. I will leave it up to you and RACHEL St, as to which Engine Mechanic you go to see. Please see your PCP in the next 1-2 weeks to have any adjustment of your medications, any lab tests, and you will need a referral from your PCP to see that Engine Mechanic. After a Engine Mechanic completes your evaluation and management, then you would qualify to attend cardiac rehab here in [facility]. Plan of Treatment: As above. Care Goals: Improvement in symptoms and stabilization are the goals. Assessment: The patient understands and is agreeable with the plan. Additional Instructions or Follow Up instructions: You should weigh yourself daily and if there is more than a 3 - 5 pound increase in your weight, please take an extra pill of Lasix on that day. If you have new or worsening symptoms, call your PCP for advice or come to the ER. No Smoking: If you smoke, Please STOP! Call for help. Follow-up with: Fatemeh Delgado ARNP [Primary Care Provider] -
[2021-11-30 11:13] VITALS: BP 109/77
--- NOTE | 2021-11-30 11:24 | DISCHARGE SUMMARY ---
Discharge Summary Admit Date: 11/23/21 Discharge Date: 11/30/21 Discharging Provider: Chiara Burton MD Primary Care Provider: Fatemeh St NP Condition at Discharge: Fair Discharge Disposition: 01 Home, Self Care - HPI History of Present Illness: From the admission H&P of Dr. Joslyn Shafefr: This is a 71-year-old white female who has no history of cardiac disease. (Her risk factors for cardiac disease include age, hyperlipidemia, and hypertension). She presents with 4 days of palpitations that were getting steadily worse. She waited over the weekend to call her primary care provider office and they sent her here to the emergency room. She was brought in by EMS and rapid Afib was seen. EMS gave her 16 mg of diltiazem when her heart rate was 162. This dropped her HR down to 150 by the time she got to the ER. They had also given her a 250 cc fluid bolus. In the ER, her blood pressure is well maintained. Creatinine is newly elevated at 1.2 with a baseline being 0.8. Magnesium, potassium was normal. EKG had no acute ST-T wave changes and because she been having symptoms of palpitations for 4 days without chest pain , nausea, jaw pain, or L arm pain, the ER provider felt that demand ischemia troponin did not really need to be verified. TSH was normal. In the ER she has received diltiazem drip after diltiazem IV push 3 doses, and Metoprolol p.o. and diltiazem p.o. Her heart rate is now varying between 108-126. We are asked to place her in Observation to control her heart rate. On review of systems she tells me that she has been slowing down this last year. She can really feel it. She usually goes to [facility] every year to see her family. Her long-term goal is to return to live in [facility] when she can no longer take care of her self, now that her . But this year she has not gone because of worsening Parkinson's, and worsening right buttock stiffness. She cannot put her finger on it but she is just really slowing down. Appetite is good. She is still eating. She does not describe her self is getting very hungry but she does eat regularly to maintain nutrition and strength. There is been no cough, wheezing, phlegm production. There is no sore throat, fever, eustachian tube dysfunction. She denies any abdominal pain unless it is tightness that radiates from the right buttock around to the right lower quadrant when she bends over. There is been no change in bowel habits. She has definitely been spending more more time sitting over the last few weeks due to Parkinson's and stiffness. She still drives a car, pays her own bills, does her own housekeeping, grocery shopping and cooking. - HOSPITAL COURSE Hospital Course: (1) Atrial fibrillation with RVR She presented in new onset Afib, converted to normal sinus rhythm her first night, then went back into atrial fib-flutter with RVR and rate control was difficult. Her TSH was normal. No PE was reported on CT. Troponins were done and ruled out ACS as cause of new onset afib. She does not have a history of lung disease. An Echo showed no regional wall motion abnormalities, normal LVEF, but she has moderate or worse MS and MR and a very large left atrium. This valvular heart disease is likely the cause of her Afib. She was put on Eliquis for stroke prophylaxis. She was on IV amiodarone which had negligible effect. We then titrated up oral Beta-blockers and oral Cardizem and achieved rate control and she was discharged on these new meds. (2) Acute respiratory failure with hypoxia The day after admission, she became short of breath, required suppl O2, her exam had rales and CXR showed CHF. The IV fluids were stopped and she was diuresed. Her oxygen needs were weaned to room air. On the day of discharge, she underwent an exercise oximetry test and did not need home O2. (3) CHF The CT chest had reported a significant pleural effusion, and she went into CHF after just several hours of iv fluids (that were started for JERRY). The CHF was likely from days of having A. fib with RVR, since she complained of palpitations for 4 days before she sought medical help. Her IV fluids were stopped and she was diuresed. Her Echo showed no regional wall motion abnormalities, normal LVEF, but she has moderate or worse MS and MR. She was discharged with a new order for p.o. Lasix. She needs further management by Cardiology and she was told she will likely need a procedure done of her mitral valve. (4) Mitral stenosis and mitral regurgitation The Echo was done and showed that she has moderate (or more significant) MS and MR and a very large left atrium. This valvular heart disease is likely the cause of her Afib. (5) Parkinson disease Marked tremors were noted on admission exam because she had not had any of her medicines for nearly a day, while in the ED. We resumed her home Parkinsons meds. An OT consult did not suggest any hand devices were needed. (6) Hx HTN Before admission, she took Atenolol to control her blood pressure and her tremors. Atenolol was changed to Metoprolol Succ at discharge. (7) Chronic pain of right lower extremity She described severe pain in the right buttock and has already had extensive radiology eval, PT visits, massage therapy, and chiropractic manipulation without much relief of pain. We resumed her gabapentin. We requested PT consult who diagnosed pyriform strain and we started topical Lidocaine patch daily applied to the R buttock. She was discharged with a Lidocaine patch prescription. (8) Cardio-Renal syndrome After starting Lasix, her BUN/creatinine improved. (9) Dehydration Resolved with less than 1 day of iv fluids. Fluids were stopped when wheezing and CHF developed. - ALLERGIES Allergies/Adverse Reactions: Allergies Allergy/AdvReac Type Severity Reaction Status Date / Time No Known Drug Allergies Allergy Verified 11/23/21 09:48 - MEDICATIONS Home Medications: Ambulatory Orders Medication Instructions Recorded Confirmed Carbidopa/Levodopa 25/100 [Sinemet 1 tab PO QID 11/03/18 11/23/21 25 mg/100 mg] [place]-3/Dha/Epa/Fish Oil [Fish Oil 1 cap PO DAILY 09/03/20 11/23/21 1,000 mg Softgel] Alendronate [Fosamax] 70 mg PO OAW 11/23/21 11/23/21 Apixaban [Eliquis] 5 mg PO BID #60 tablet 11/23/21 Calcium Carbonate [Calcium] 600 mg PO DAILY 11/23/21 11/23/21 Cholecalciferol (Vitamin D3) 50 mcg PO DAILY 11/23/21 11/23/21 [Vitamin D3] Rosuvastatin Calcium [Crestor] 10 mg PO QPM 11/23/21 11/23/21 Furosemide [Lasix] 20 mg PO BID #60 tablet 11/30/21 Lidocaine Patch 5% [Lidoderm Patch] 1 patch TOP DAILY #30 patch 11/30/21 Metoprolol Succinate [Toprol Xl] 150 mg PO DAILYWM #90 tab 11/30/21 diltiaZEM CD [Cardizem Cd] 240 mg PO 1900 #30 cap 11/30/21 - PHYSICAL EXAM AT DISCHARGE General Appearance: positive: No acute distress, Alert, Other (She is bradykinetic, has a tremor in her voice) Eyes Bilateral: positive: Normal inspection, EOMI ENT: positive: ENT inspection nml, No signs of dehydration Neck: positive: Nml inspection, No JVD Respiratory: positive: No respiratory distress, Breath sounds nml Cardiovascular: positive: Irregularly irregular, Systolic murmur Abdomen: positive: Non-tender, Nml bowel sounds, No distention Skin: positive: Warm, Dry Extremities: positive: Non-tender, No pedal edema Neurologic/Psychiatric: positive: Oriented x3, Other (Mild tremor of both hands are seen) - LABS Result Diagrams: 11/30/21 05:37 11/30/21 05:37 - DIAGNOSTIC IMAGING Diagnostic Imaging Results: Final report reviewed - FOLLOW UP Follow Up: Recommended to see PCP in the next 1 to 2 weeks and to have a referral to Cardiology. - TIME SPENT Time Spent in Discharge (Minutes): 50
== END 2021-11-30 12:30 | disposition home or self-care (01) | DRG 308 ==
LOC: EDUNIT# → ED 09:45 → ICU 15:03 → OBSVTOIN 11-24 08:14 → MS2 11-28 19:49
PROVIDERS: ADMIT Specialist; ATTEND Internal Medicine
DX: I48.91 Unspecified atrial fibrillation (principal); I10 Essential (primary) hypertension; R94.31 Abnormal electrocardiogram [ECG] [EKG]; R07.9 Chest pain, unspecified; R06.2 Wheezing; J96.01 Acute respiratory failure with hypoxia; I13.0 Hypertensive heart and chronic kidney disease with heart failure and stage 1 through stage 4 chronic kidney disease, or unspecified chronic kidney disease; J84.9 Interstitial pulmonary disease, unspecified; N17.9 Acute kidney failure, unspecified; Z20.822 Contact with and (suspected) exposure to COVID-19; Z79.899 Other long term (current) drug therapy; I50.9 Heart failure, unspecified; I05.0 Rheumatic mitral stenosis; G20 Parkinson's disease; G89.29 Other chronic pain; M79.604 Pain in right leg; N18.9 Chronic kidney disease, unspecified; E86.0 Dehydration; R10.31 Right lower quadrant pain; E78.00 Pure hypercholesterolemia, unspecified; M54.10 Radiculopathy, site unspecified; R03.1 Nonspecific low blood-pressure reading; I48.92 Unspecified atrial flutter; Z82.49 Family history of ischemic heart disease and other diseases of the circulatory system; Z96.1 Presence of intraocular lens; Z98.41 Cataract extraction status, right eye; Z98.42 Cataract extraction status, left eye
CPT/HCPCS: 36415; 71045; 71260; 74160; 80048; 80053; 82330; 83690; 83735; 83880; 84100; 84132; 84443; 84484; 85025; 85379; 85610; 87150; 87635; 93005; 93306; 94640; 94761; 96374; 96375; 96376; 97162; 99283; 99285; A9270; J0282; Q9967

== ENCOUNTER 2022-03-29 08:59 | Outpatient (CLI) | payer MEDICARE, OTHER ==
[2022-03-29 12:12] LABS: BASOPHILS % (AUTO) 0.8 %; HGB - HEMOGLOBIN 12.5 g/dL (12.0-16.0); LYMPHOCYTES % (AUTO) 36.6 %; MEAN CORPUSCULAR HEMOGLOBIN 30.8 pg (27.0-31.0); MEAN CORPUSCULAR HGB CONC 32.1 g/dL (32.0-36.0); MEAN CORPUSCULAR VOLUME 96.1 fL (81.0-99.0); MEAN PLATELET VOLUME 11.5 fL (7.9-10.8); MONOCYTES % (AUTO) 7.6 %; NEUTROPHILS % (AUTO) 34.8 %; PLT - PLATELET COUNT 192 10^3/uL (130-450); RED BLOOD COUNT 4.06 10^6/uL (4.20-5.40); RED CELL DISTRIBUTION WIDTH 13.5 % (12.0-15.0); WHITE BLOOD COUNT 6.6 x10^3/uL (4.8-10.8)
[2022-03-29 12:29] LABS: ABNORMAL LYMPHS % (MANUAL) 0 %; BAND NEUTROPHILS % (MANUAL) 0 %
[2022-03-29 12:34] LABS: DIFFERENTIAL COMMENT MANUAL DIFFERENTIAL; LYMPHOCYTES # (MANUAL) 2.3 10^3/uL (1.5-3.5); LYMPHOCYTES % (MANUAL) 35 %; MONOCYTES # (MANUAL) 0.6 10^3/uL (0.0-1.0); NEUTROPHILS # (MANUAL) 2.7 10^3/uL (1.5-6.6); PLATELET ESTIMATE, MANUAL NORMAL (130-450,000) (NORMAL); PLATELET MORPHOLOGY NORMAL APPEARANCE (NORMAL); RBC MORPHOLOGY (MULTIPLE) NORMAL APPEARANCE (NORMAL)
[2022-03-29 13:13] LABS: ALBUMIN 3.8 g/dL (3.2-5.5); ALBUMIN/GLOBULIN RATIO 1.1 (1.0-2.2); ALKALINE PHOSPHATASE 44 IU/L (42-121); ALT ALANINE AMINOTRANSFERASE < 10 IU/L (10-60); AST ASPARTATE AMINOTRANSFERASE 18 IU/L (10-42); BILIRUBIN,TOTAL 0.9 mg/dL (0.2-1.0); BUN - BLOOD UREA NITROGEN 24 mg/dL (6-20); CALCIUM 9.4 mg/dL (8.5-10.3); CARBON DIOXIDE - CO2 30 mmol/L (21-32); CHLORIDE 103 mmol/L (101-111); CHOL/HDL RATIO 2.8 (<4.4); CHOLESTEROL 169 mg/dL; CREATININE 0.9 mg/dL (0.4-1.0); GFR - MDRD 61 (>89); GLUCOSE 103 mg/dL (70-100); HDL CHOLESTEROL 60 mg/dL; LDL CHOLESTEROL,CALCULATED 95 mg/dL; LDL/HDL RATIO 1.6 (<4.4); POTASSIUM 4.4 mmol/L (3.5-5.0); SODIUM 139 mmol/L (135-145); TOTAL PROTEIN 7.2 g/dL (6.7-8.2); TRIGLYCERIDES 68 mg/dL; VLDL CHOLESTEROL 14 mg/dL
== END 2022-03-29 09:00 | disposition home or self-care (01) ==
LOC: LAB.N 08:59
PROVIDERS: ATTEND Nurse Practitioner Family
DX: E78.5 Hyperlipidemia, unspecified (principal); I48.91 Unspecified atrial fibrillation; I10 Essential (primary) hypertension
CPT/HCPCS: 36415; 80053; 80061; 83721; 85025

== ENCOUNTER 2022-04-08 14:56 | Outpatient (CLI) | payer MEDICARE, OTHER | END 2022-04-08 14:57 | disposition home or self-care (01) | LOC: DI 14:56 | PROVIDERS: ATTEND Internal Medicine Cardiovascular Disease | DX: I48.0 Paroxysmal atrial fibrillation (principal); I05.2 Rheumatic mitral stenosis with insufficiency | CPT/HCPCS: 93306 ==

== ENCOUNTER 2023-04-01 10:31 | Emergency (ER) | payer MEDICARE, OTHER ==
[2023-04-01 11:18] LABS: BASOPHILS # (AUTO) 0.1 10^3/uL (0.0-0.1); BASOPHILS % (AUTO) 0.5 %; EOSINOPHILS # (AUTO) 0.5 10^3/uL (0.0-0.7); EOSINOPHILS % (AUTO) 5.4 %; HCT - HEMATOCRIT 39.5 % (37.0-47.0); HGB - HEMOGLOBIN 12.4 g/dL (12.0-16.0); LYMPHOCYTES # (AUTO) 1.5 10^3/uL (1.5-3.5); LYMPHOCYTES % (AUTO) 16.2 %; MEAN CORPUSCULAR HEMOGLOBIN 31.8 pg (27.0-31.0); MEAN CORPUSCULAR HGB CONC 31.4 g/dL (32.0-36.0); MEAN CORPUSCULAR VOLUME 101.3 fL (81.0-99.0); MEAN PLATELET VOLUME 10.4 fL (7.9-10.8); MONOCYTES # (AUTO) 0.8 10^3/uL (0.0-1.0); MONOCYTES % (AUTO) 8.3 %; NEUTROPHILS # (AUTO) 6.6 10^3/uL (1.5-6.6); NEUTROPHILS % (AUTO) 69.3 %; PLT - PLATELET COUNT 191 10^3/uL (130-450); RED CELL DISTRIBUTION WIDTH 14.9 % (12.0-15.0); WHITE BLOOD COUNT 9.5 x10^3/uL (4.8-10.8)
[2023-04-01] MEDS ORDERED: diltiaZEM INJ 5 MG/ML VIAL IVP STA ×2 (11:29→12:13)
[2023-04-01] MEDS ORDERED: FUROSEMIDE 40 MG/4 ML VIAL IVP STA (11:29)
--- NOTE | 2023-04-01 11:32 | ED Physician Documentation ---
PD HPI CHEST PAIN - Stated complaint Stated Complaint: SOA,BILAT LEG SWELLING - Chief complaint Chief Complaint: Cardiac - History obtained from History obtained from: Patient - Additional information Additional information: This is a carmen 73-year-old woman who was admitted here for about a week in November of last year for A-fib with RVR causing HFpEF. She did spend 3 months in [facility] and for the last 3 weeks has had some orthopnea and dyspnea on exertion without chest pain. She is noted pedal edema which actually improved yesterday somewhat. She continues on diltiazem, Eliquis, and metoprolol but has not been on any diuretics. 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 : None HEENT: Other Psych: None Musculoskeletal: Osteoporosis Derm: None - Past Surgical History Past Surgical History: Yes General: Hiatal hernia repair, Colonoscopy HEENT: Cataracts - Present Medications Home Medications: Ambulatory Orders Medication Instructions Recorded Confirmed Carbidopa/Levodopa 25/100 [Sinemet 1 tab PO QID 11/03/18 04/01/23 25 mg/100 mg] [place]-3/Dha/Epa/Fish Oil [Fish Oil 1 cap PO DAILY 09/03/20 04/01/23 1,000 mg Softgel] Alendronate [Fosamax] 70 mg PO OAW 11/23/21 04/01/23 Apixaban [Eliquis] 5 mg PO BID #60 tablet 11/23/21 04/01/23 Calcium Carbonate [Calcium] 600 mg PO DAILY 11/23/21 04/01/23 Cholecalciferol (Vitamin D3) 50 mcg PO DAILY 11/23/21 04/01/23 [Vitamin D3] Rosuvastatin Calcium [Crestor] 10 mg PO QPM 11/23/21 04/01/23 Furosemide [Lasix] 20 mg PO BID #60 tablet 11/30/21 04/01/23 Lidocaine Patch 5% [Lidoderm Patch] 1 patch TOP DAILY #30 patch 11/30/21 04/01/23 Metoprolol Succinate [Toprol Xl] 150 mg PO DAILYWM #90 tab 11/30/21 04/01/23 diltiaZEM CD [Cardizem Cd] 240 mg PO 1900 #30 cap 11/30/21 04/01/23 Apixaban [Eliquis] 1 tab PO BID #60 tablet 04/01/23 Furosemide [Lasix] 20 mg PO DAILY #10 tablet 04/01/23 Metoprolol Succinate 1.5 tab PO DAILY #30 tab 04/01/23 dilTIAZem HCL [Diltiazem 24Hr ER] 360 mg PO QPM #30 cap 04/01/23 - Allergies Allergies/Adverse Reactions: Allergies Allergy/AdvReac Type Severity Reaction Status Date / Time No Known Drug Allergies Allergy Verified 04/01/23 11:09 - Social History Does the pt smoke?: No Smoking Status: Never smoker Does the pt drink ETOH?: No Does the pt have substance abuse?: No - Immunizations Immunizations are current?: Yes - POLST Patient has POLST: No POLST Status: Full Code PD ED PE NORMAL - Vitals Vital signs reviewed: Yes - General General: Alert and oriented X 3, Other (Carmen alert 73-year-old woman with an accent who has a parkinsonian tremor) - HEENT HEENT: PERRL, EOMI - Neck Neck: Supple, no meningeal sign, No bony TTP - Cardiac Cardiac: Other (Irregularly irregular without murmur) - Respiratory Respiratory: No respiratory distress, Other (Diminished with rales at both bases) - Abdomen Abdomen: Non tender - Back Back: No CVA TTP, No spinal TTP - Derm Derm: Normal color, Warm and dry - Extremities Extremities: Other (2+ bilateral edeme) - Neuro Neuro: Alert and oriented X 3, Normal speech Results - Vitals Vitals: Vital Signs - 24 hr 04/01/23 04/01/23 04/01/23 10:53 11:27 11:48 Temperature 36.7 C Heart Rate 130 H 121 H 106 H Respiratory 24 20 20 Rate Blood Pressure 129/83 H 119/99 H 126/76 O2 Saturation 90 L 96 100 04/01/23 04/01/23 04/01/23 12:00 12:30 13:00 Temperature Heart Rate 112 H 113 H 113 H Respiratory 18 18 18 Rate Blood Pressure 122/99 H 127/100 H 109/57 L O2 Saturation 97 95 96 04/01/23 13:19 Temperature Heart Rate 101 H Respiratory 18 Rate Blood Pressure 116/93 H O2 Saturation 96 Oxygen O2 Source Room air - EKG (time done) 1050 EKG releavant findings:: EKG personally interpreted by author of this note. Relevant findings are: Rate: Rate (enter#) (118) Rhythm: Sinus tachycardia [place]: Normal QRS: Normal Ischemia: Non specific changes. No: ST elevation c/w ischemia Computer interpretation: Agree with computer - Labs Labs: Laboratory Tests 04/01/23 04/01/23 04/01/23 11:13 11:13 11:13 WBC 9.5 RBC 3.90 L Hgb 12.4 Hct 39.5 MCV 101.3 H MCH 31.8 H MCHC 31.4 L RDW 14.9 Plt Count 191 MPV 10.4 Neut # (Auto) 6.6 Lymph # (Auto) 1.5 [place] # (Auto) 0.8 Eos # (Auto) 0.5 Baso # (Auto) 0.1 Absolute Nucleated RBC 0.00 Nucleated RBC % 0.0 D-Dimer 351.0 H Sodium 141 Potassium 3.7 Chloride 107 Carbon Dioxide 28 Anion Gap 6.0 BUN 30 H Creatinine 1.1 Estimated GFR (MDRD) 49 L Glucose 160 H Calcium 9.6 Magnesium 1.7 Total Bilirubin 0.7 AST 17 ALT 7 L Alkaline Phosphatase 61 Troponin I High Sens 10.5 B-Natriuretic Peptide Total Protein 6.8 Albumin 3.8 Globulin 3.0 Albumin/Globulin Ratio 1.3 04/01/23 11:13 WBC RBC Hgb Hct MCV MCH MCHC RDW Plt Count MPV Neut # (Auto) Lymph # (Auto) [place] # (Auto) Eos # (Auto) Baso # (Auto) Absolute Nucleated RBC Nucleated RBC % D-Dimer Sodium Potassium Chloride Carbon Dioxide Anion Gap BUN Creatinine Estimated GFR (MDRD) Glucose Calcium Magnesium Total Bilirubin AST ALT Alkaline Phosphatase Troponin I High Sens B-Natriuretic Peptide 520 H Total Protein Albumin Globulin Albumin/Globulin Ratio - Rads (name of study) Single view chest x-ray demonstrates low lung volumes and edema with small effusions Relevant Findings:: Final report received, EMP independent interpretation of te PD Medical Decision Making - ED course ED course: 73-year-old woman presents with symptoms of heart failure related to A-fib with RVR and has a history of HFpEF due to inadequate rate control and no diuretics. She is administered IV Lasix and diltiazem initially. Workup demonstrates unremarkable CBC, elevated D-dimer at 351, but age-adjusted the cutoff for positivity would be 370 so this is actually negative, she has elevation of BUN and BNP. Diltiazem initially given at a dose of 10 mg and this was repeated as it really did not affect much in the way of rate control. After the above interventions she was rate controlled and she diuresed well in the department. She really did not want to stay in the hospital and her vital signs would not suggest the need anyway. I will increase her diltiazem and add a diuretic. Departure - Departure Disposition: 01 Home, Self Care Clinical Impression: Atrial fibrillation with RVR, (HFpEF) heart failure with preserved ejection fraction Condition: Good Record reviewed to determine appropriate education?: Yes Instructions: Atrial Fibrillation Dc, ED CHF General, ED Diet Low Salt 2Gm Prescriptions: dilTIAZem HCL [Diltiazem 24Hr ER] 360 mg PO QPM #30 cap Apixaban [Eliquis] 1 tab PO BID #60 tablet Furosemide [Lasix] 20 mg PO DAILY #10 tablet Metoprolol Succinate 1.5 tab PO DAILY #30 tab Comments: [place] [facility] [place]. I would like you to increase your diltiazem, and I wrote a new prescription for a new dose at night. You can continue your metoprolol dose at the current dose. We are also adding the Lasix/furosemide diuretic. Follow-up with your doctor next week for recheck. Return for new or worsening symptoms. Forms: PCP List Discharge Date/Time: 04/01/23 13:25
[2023-04-01 11:35] LABS: ALBUMIN 3.8 g/dL (3.2-5.5); ALBUMIN/GLOBULIN RATIO 1.3 (1.0-2.2); BILIRUBIN,TOTAL 0.7 mg/dL (0.2-1.0); CALCIUM 9.6 mg/dL (8.5-10.3); CREATININE 1.1 mg/dL (0.6-1.3); MAGNESIUM 1.7 mg/dL (1.7-2.3); POTASSIUM 3.7 mmol/L (3.5-4.5); TOTAL PROTEIN 6.8 g/dL (6.4-8.9)
--- NOTE | 2023-04-01 11:36 | XRAY Report ---
PROCEDURE: Chest 1V INDICATIONS: dyspnea TECHNIQUE: One view of the chest was acquired. COMPARISON: None. FINDINGS: Surgical changes and devices: None. Lungs and pleura: Low lung volumes. Moderate diffuse lung disease, particularly at the bases. Mild t o moderate bilateral effusions. Mediastinum: Borderline heart size. The heart borders are obscured. Bones and chest wall: Degenerative changes. IMPRESSION: Low lung volumes with moderate diffuse lung disease, likely edema (versus infection). Small effusions . Consider future imaging surveillance to assess for resolution. Reviewed by: Celestine Good MD on 04/01/2023 11:35 AM [facility] Approved by: Celestine Good MD on 04/01/2023 11:35 AM [facility] Station ID: [id number]
[2023-04-01 11:38] LABS: TROPONIN I HIGH SENSITIVITY 10.5 ng/L (2.3-14.8)
[2023-04-01 13:23] VITALS: BP 116/93; O2SAT 96
== END 2023-04-01 13:25 | disposition home or self-care (01) ==
LOC: ED 10:31
DX: I11.0 Hypertensive heart disease with heart failure (principal); I50.30 Unspecified diastolic (congestive) heart failure; I48.91 Unspecified atrial fibrillation; Z79.01 Long term (current) use of anticoagulants
CPT/HCPCS: 36415; 80053; 83735; 83880; 84484; 85025; 85379; 93005; 96374; 96375; 96376; 99284

== ENCOUNTER 2023-04-13 10:37 | Outpatient (CLI) | payer MEDICARE, OTHER ==
--- NOTE | 2023-04-13 16:31 | XRAY Report ---
PROCEDURE: Chest 2V INDICATIONS: CONGESTIVE HEART FAILURE AND ABNORMAL CHEST RADIOGRAPH TECHNIQUE: 2 views of the chest were acquired. COMPARISON: Chest x-ray 04/01/2023. FINDINGS: Surgical changes and devices: None. Lungs and pleura: No pleural effusions or pneumothorax. Lungs are clear. Mediastinum: Mediastinal contours appear normal. Heart size is normal. Bones and chest wall: No suspicious bony lesions. Overlying soft tissues appear unremarkable. IMPRESSION: No acute cardiopulmonary process. Resolution of prior edema versus infection. Reviewed by: Abdi Moore MD on 04/13/2023 4:30 PM PST Approved by: Abdi Moore MD on 04/13/2023 4:30 PM PST Station ID: [id number]
== END 2023-04-13 10:38 | disposition home or self-care (01) ==
LOC: DI.N 10:37
PROVIDERS: ATTEND Nurse Practitioner Family
DX: Z09 Encounter for follow-up examination after completed treatment for conditions other than malignant neoplasm (principal); Z87.09 Personal history of other diseases of the respiratory system; I50.9 Heart failure, unspecified; I48.91 Unspecified atrial fibrillation
CPT/HCPCS: 36415; 80048

== ENCOUNTER 2023-04-13 10:42 | Outpatient (CLI) | payer MEDICARE, OTHER ==
[2023-04-13 12:32] LABS: CALCIUM 10.2 mg/dL (8.5-10.3); CREATININE 1.5 mg/dL (0.6-1.3); POTASSIUM 4.1 mmol/L (3.5-4.5)
== END 2023-04-13 10:43 | disposition home or self-care (01) ==
LOC: LAB.N 10:42
PROVIDERS: ATTEND Nurse Practitioner Family
DX: I50.9 Heart failure, unspecified (principal); I48.91 Unspecified atrial fibrillation
CPT/HCPCS: 36415; 80048

== ENCOUNTER 2023-04-22 09:01 | Outpatient (CLI) | payer MEDICARE, OTHER ==
[2023-04-22 12:09] LABS: BASOPHILS # (AUTO) 0.1 10^3/uL (0.0-0.1); BASOPHILS % (AUTO) 0.7 %; EOSINOPHILS # (AUTO) 0.8 10^3/uL (0.0-0.7); EOSINOPHILS % (AUTO) 10.8 %; HCT - HEMATOCRIT 42.9 % (37.0-47.0); HGB - HEMOGLOBIN 13.3 g/dL (12.0-16.0); LYMPHOCYTES # (AUTO) 2.7 10^3/uL (1.5-3.5); LYMPHOCYTES % (AUTO) 38.8 %; MEAN CORPUSCULAR HEMOGLOBIN 30.9 pg (27.0-31.0); MEAN CORPUSCULAR VOLUME 99.8 fL (81.0-99.0); MEAN PLATELET VOLUME 11.1 fL (7.9-10.8); MONOCYTES # (AUTO) 0.5 10^3/uL (0.0-1.0); MONOCYTES % (AUTO) 7.4 %; PLT - PLATELET COUNT 199 10^3/uL (130-450); RED CELL DISTRIBUTION WIDTH 13.2 % (12.0-15.0); WHITE BLOOD COUNT 7.1 x10^3/uL (4.8-10.8)
[2023-04-22 14:25] LABS: ALBUMIN/GLOBULIN RATIO 1.2 (1.0-2.2); ALKALINE PHOSPHATASE 53 IU/L (42-121); ALT ALANINE AMINOTRANSFERASE 3 IU/L (10-60); AST ASPARTATE AMINOTRANSFERASE 20 IU/L (10-42); BILIRUBIN,TOTAL 0.6 mg/dL (0.2-1.0); BUN - BLOOD UREA NITROGEN 32 mg/dL (6-20); CALCIUM 10.1 mg/dL (8.5-10.3); CARBON DIOXIDE - CO2 32 mmol/L (21-32); CHLORIDE 103 mmol/L (101-111); CHOL/HDL RATIO 2.9 (<4.4); CHOLESTEROL 160 mg/dL; CREATININE 1.2 mg/dL (0.6-1.3); GFR - MDRD 44 (>89); GLUCOSE 117 mg/dL (74-104); HDL CHOLESTEROL 56 mg/dL; LDL CHOLESTEROL,CALCULATED 87 mg/dL; LDL/HDL RATIO 1.6 (<4.4); POTASSIUM 4.3 mmol/L (3.5-4.5); SODIUM 140 mmol/L (135-145); TOTAL PROTEIN 7.4 g/dL (6.4-8.9); TRIGLYCERIDES 83 mg/dL (48-352); VLDL CHOLESTEROL 17 mg/dL
== END 2023-04-22 09:02 | disposition home or self-care (01) ==
LOC: LAB.N 09:01
PROVIDERS: ATTEND Nurse Practitioner Family
DX: I10 Essential (primary) hypertension (principal); E78.5 Hyperlipidemia, unspecified
CPT/HCPCS: 36415; 80053; 80061; 83721; 84443; 85025

== ENCOUNTER 2023-05-03 08:24 | Outpatient (CLI) | payer MEDICARE, OTHER ==
[2023-05-03 12:30] LABS: BASOPHILS # (AUTO) 0.1 10^3/uL (0.0-0.1); BASOPHILS % (AUTO) 0.8 %; EOSINOPHILS # (AUTO) 0.8 10^3/uL (0.0-0.7); EOSINOPHILS % (AUTO) 12.1 %; HGB - HEMOGLOBIN 13.2 g/dL (12.0-16.0); LYMPHOCYTES # (AUTO) 2.2 10^3/uL (1.5-3.5); LYMPHOCYTES % (AUTO) 32.7 %; MEAN CORPUSCULAR HGB CONC 31.4 g/dL (32.0-36.0); MEAN CORPUSCULAR VOLUME 98.6 fL (81.0-99.0); MONOCYTES # (AUTO) 0.6 10^3/uL (0.0-1.0); MONOCYTES % (AUTO) 8.6 %; NEUTROPHILS % (AUTO) 45.6 %; PLT - PLATELET COUNT 173 10^3/uL (130-450); RED BLOOD COUNT 4.26 10^6/uL (4.20-5.40); RED CELL DISTRIBUTION WIDTH 12.9 % (12.0-15.0); WHITE BLOOD COUNT 6.6 x10^3/uL (4.8-10.8)
[2023-05-03 14:17] LABS: ALBUMIN/GLOBULIN RATIO 1.3 (1.0-2.2); BILIRUBIN,TOTAL 0.5 mg/dL (0.2-1.0); CALCIUM 9.8 mg/dL (8.5-10.3); CREATININE 1.2 mg/dL (0.6-1.3); POTASSIUM 4.2 mmol/L (3.5-4.5); TOTAL PROTEIN 7.2 g/dL (6.4-8.9)
== END 2023-05-03 08:25 | disposition home or self-care (01) ==
LOC: LAB.N 08:24
PROVIDERS: ATTEND Psychiatry & Neurology Neurology
DX: E55.9 Vitamin D deficiency, unspecified (principal); Z51.81 Encounter for therapeutic drug level monitoring
CPT/HCPCS: 36415; 80053; 82652; 85025